=== PATIENT | male | born 1950 ===

== ENCOUNTER 2021-03-21 12:13 | Outpatient (REF) | payer MEDICARE, SELFPAY ==
[2021-03-21 14:39] LABS: PSA,Total (Free>4and<10) 4.58 ng/mL (0.00-4.00)
[2021-03-22 10:46] LABS: Free Prostate Spec Ag 1.1 ng/mL; Percent Free Prostate Spec Ag 26 % (calc) (>25); Prostate Specific Ag Total 4.3 ng/mL (< OR = 4.0)
== END 2021-03-21 12:14 | disposition home or self-care (01) ==
LOC: HO.LAB 12:13
PROVIDERS: PCP Internal Medicine; Visit Provider Urology
DX: Z12.5 Encounter for screening for malignant neoplasm of prostate (principal); N40.1 Benign prostatic hyperplasia with lower urinary tract symptoms; Z87.898 Personal history of other specified conditions
CPT/HCPCS: 36415; 84153; 84154

== ENCOUNTER 2021-04-26 06:08 | Outpatient (REF) | payer MEDICARE, SELFPAY ==
[2021-04-28 11:42] LABS: Free Prostate Spec Ag 0.8 ng/mL; Percent Free Prostate Spec Ag 28 % (calc) (>25); Prostate Specific Ag Total 2.9 ng/mL (< OR = 4.0)
== END 2021-04-26 06:09 | disposition home or self-care (01) ==
LOC: HO.LAB 06:08
PROVIDERS: PCP Internal Medicine; Visit Provider Urology
DX: Z12.5 Encounter for screening for malignant neoplasm of prostate (principal); R97.20 Elevated prostate specific antigen [PSA]
CPT/HCPCS: 36415; 84154

== ENCOUNTER → 2021-05-04 08:31 | Outpatient (BNVA) | payer MEDICARE, SELFPAY | PROVIDERS: PCP Internal Medicine; Visit Provider Urology | DX: N40.1 Benign prostatic hyperplasia with lower urinary tract symptoms (principal); R35.0 Frequency of micturition; R35.1 Nocturia; R31.9 Hematuria, unspecified; R97.20 Elevated prostate specific antigen [PSA] | CPT/HCPCS: 51798; 99212 ==

== ENCOUNTER 2021-08-23 11:30 | Outpatient (REF) | payer MEDICARE, SELFPAY ==
[2021-08-23 13:26] LABS: PSA,Total (Free>4and<10) 2.45 ng/mL (0.00-4.00)
== END 2021-08-23 11:31 | disposition home or self-care (01) ==
LOC: HO.LAB 11:30
PROVIDERS: PCP Internal Medicine; Visit Provider Urology
DX: Z12.5 Encounter for screening for malignant neoplasm of prostate (principal); N13.8 Other obstructive and reflux uropathy; N40.1 Benign prostatic hyperplasia with lower urinary tract symptoms; R35.1 Nocturia
CPT/HCPCS: 36415; 84153

== ENCOUNTER → 2021-09-07 10:57 | Outpatient (BNVA) | payer MEDICARE, SELFPAY | PROVIDERS: PCP Internal Medicine; Visit Provider Urology | DX: N40.1 Benign prostatic hyperplasia with lower urinary tract symptoms (principal); R35.1 Nocturia | CPT/HCPCS: 51798; 99212 ==

== ENCOUNTER 2021-10-24 07:07 | Day surgery (SDC) | payer MEDICARE, SELFPAY ==
[2021-10-17 15:31] VITALS: BMI 21.7
[2021-10-24] VITALS (7 sets, daily range): BP systolic 107–135; BP diastolic 65–87; PULSE 50–82; RESP 10–18; TEMP 36.1; O2SAT 96–100
[2021-10-24] MEDS: Lactated Ringers 1,000 ML 80 ML IVCONT (07:47)
--- NOTE | 2021-10-24 08:18 | HO.ANESPROP2 ---
HPI - Anesthesia Eval Consult details Narrative: 71 M for laser ablation PMFSH Active Problems Active Problems: All Active Problems (Updated 05/04/21 @ 09:25 by Edgardo Suh MD) Elevated PSA (Acute) Nocturia associated with benign prostatic hyperplasia (Acute) Benign prostatic hyperplasia with nocturia (Acute) Past Medical History Medical History Benign prostatic hyperplasia with nocturia Nocturia associated with benign prostatic hyperplasia Family History Family history of problems with anesthesia: No Surgical History Surgical History (Updated 10/17/21 @ 15:28 by Salena Eric RN) H/O colonoscopy Hx of cystoscopy Hx of transurethral resection of prostate History of Problems with Anesthesia: No Social History Social History (Updated 09/07/21 @ 11:06 by Ning Belcher CMA) Alcohol intake: current Alcohol intake frequency: 0-2 drinks per day Patient Tobacco Use Status: Never used Tobacco Advance Directives: No Advance Directives Information Provided: Yes Advance Directives on File: No Meds Allergies Allergy/AdvReac Type Severity Reaction Status Date / Time No Known Allergies Allergy Verified 09/07/21 11:03 [No Known Allergies*] Active Medications: Current Medications Lactated Ringer's (Lr) 1,000 mls @ 80 mls/hr IVCONT .[id number] BANDAR Last Admin: 10/24/21 07:47 Dose: 80 mls/hr Documented by: Home Medications Medication Instructions Recorded Confirmed Last Taken Type aspirin 81 mg tablet,delayed 81 mg PO DAILY 09/07/21 10/20/21 History release cholecalciferol (vitamin D3) 25 25 mcg PO DAILY 09/07/21 Unknown History mcg (1,000 unit) capsule multivitamin 1 tab PO DAILY 09/07/21 Unknown History Exam Exam Date and Time: October 24, 2021 0818 Height,Weight and Vital Signs: Height 5 ft 11 in Weight 70.76 kg Last Vital Signs Temp 97 F 10/24/21 07:10 Pulse 82 10/24/21 07:10 Resp 18 10/24/21 07:10 BP 135/78 10/24/21 07:10 Pulse Ox 96 10/24/21 07:10 Airway Mallampati Class: II TM Dist: >3cm Neck ROM: Full Loose/Missing/Broken Teeth: Yes (Cap , fillings ) Heart: rrr Lungs: bl breath sounds Assessment and Plan Final Anesthetic Review Family History of Problems with Anesthesia: No History of Problems with Anesthesia: No NPO: Yes ASA Class: II Final Preanesthetic Review: Lew Risks/Benef Reviewed Patient Risk: Intermediate Procedure Risk: Intermediate Anesthetic Plan Anesthetic Plan: GA Disposition: Standard PACU
--- NOTE | 2021-10-24 09:06 | MHC.SHP ---
Pre-Procedural Eval Section A Date of Service: 10/24/21 The patient is an INPATIENT: No Changes since office visit: No Cold of Flu in the past 2 weeks, No New Medical Problems, No Changes in Medication and No Patient answered all questions The History & Physical has been completed within 30 days and I have reviewed it.: Yes Section B Chief Complaint: Benign Prostatic Hyperplasia Allergies: Allergies Allergy/AdvReac Type Severity Reaction Status Date / Time No Known Allergies Allergy Verified 09/07/21 11:03 [No Known Allergies*] Plan Diagnosis/Plan: Unchanged (Laser enucleation of the prostate) I have reviewed the history and physical and performed a pertinent physical examination on my patient. No changes have occurred unless specified.
--- NOTE | 2021-10-24 10:06 | P.OP_ITS ---
Operative Note Operative Note Date of Service: 10/24/21 Narrative: PreOperative Diagnosis: Bladder outlet obstruction Post Operative Diagnosis: Bladder outlet obstruction Procedure: [facility] laser enucleation of the prostate Surgeon: Dr Edgardo Suh Anesthesia: General Indications for procedure: History of bladder outlet obstruction. Treated with alpha-lena and other medications. Prior TURP. Recurrence of symptoms after 10 years. Recommendation for repeat intervention. Prior procedure was office based. He is aware the risks and benefits. Procedure: After informed consent was verified the patient was brought to the operating room and placed in a supine position. Anesthesia was administered per protocol. Patient was placed in modified dorsal lithotomy position and prepped and draped in a sterile fashion. Safety pause time-out was confirmed. Antibiotics have been given. Twenty-four [place] laser cystoscope was inserted per urethra. No abnormalities found the anterior posterior urethra. The bladder was filled on both ureteric orifices were seen in normal position away from our area of interest. Regrowth was predominant on the left lateral side. There was only mild regrowth on the right side. No recurrence of median lobe. The left side was ablated starting with settings of 80 up to 140. Was taken from the junction with the area of the median lobe up the sidewall to the space of non recurrence approximately 2 o'clock position. The right lateral load recurrence was also similarly ablated. A similar procedure was repeated on the patient's right-hand side. When this was completed debris and pieces of prostate removed from the bladder. Both ureteric orifices were reviewed again in shown to be patent in away from any areas of energy damage. The apical area was reviewed in any stray ooze was controlled. A 22 [place] 30 cc balloon Pena catheter was placed over stylet into the bladder. Clear efflux was obtained. 30 cc was placed in the balloon and gentle traction was placed. A snap was used to hold tension once the patient will be moved and transported. Once transportation its finish this novel be removed. A belladonna and opiate suppository was placed for postprocedure pain management. He tolerated procedure well was extubated in the operating and transferred in a stable condition to the recovery area. Total energy 136,000 joules, total time 19 minutes 34 seconds Pathology: Prostate tissue Drains: Pena catheter
[2021-10-24] MEDS: Phenazopyridine HCL 100 MG TABLET PO (10:34)
[2021-10-24] MEDS: Acetaminophen 325 MG TABLET 650 MG PO (10:35)
== END 2021-10-24 11:15 | disposition home or self-care (01) ==
PROVIDERS: PCP Internal Medicine; Visit Provider Urology
PROC: (CPT 52648; principal; 2021-10-24 09:00)
DX: N40.1 Benign prostatic hyperplasia with lower urinary tract symptoms (principal); R35.1 Nocturia; N32.0 Bladder-neck obstruction; R31.29 Other microscopic hematuria
CPT/HCPCS: 52649; 88305; J1100; J1956; J2250; J2405; J3010

== ENCOUNTER → 2021-10-27 09:27 | Outpatient (BNVA) | payer MEDICARE, SELFPAY | PROVIDERS: PCP Internal Medicine; Visit Provider Urology | DX: N40.1 Benign prostatic hyperplasia with lower urinary tract symptoms (principal); R35.1 Nocturia; R97.20 Elevated prostate specific antigen [PSA] | CPT/HCPCS: 51700; 51798 ==

== ENCOUNTER 2021-12-09 08:49 | Outpatient (REF) | payer MEDICARE, SELFPAY | END 2021-12-09 08:50 | disposition home or self-care (01) | LOC: HO.LAB 08:49 | PROVIDERS: PCP Internal Medicine | DX: N40.1 Benign prostatic hyperplasia with lower urinary tract symptoms (principal); N13.8 Other obstructive and reflux uropathy; R35.1 Nocturia; R97.20 Elevated prostate specific antigen [PSA]; Z90.79 Acquired absence of other genital organ(s); Z98.890 Other specified postprocedural states; Z12.5 Encounter for screening for malignant neoplasm of prostate | CPT/HCPCS: 51798; 87086; 99212 ==

== ENCOUNTER → 2022-03-17 09:10 | Outpatient (BNVA) | payer MEDICARE, SELFPAY | PROVIDERS: PCP Internal Medicine; Visit Provider Urology | DX: N40.1 Benign prostatic hyperplasia with lower urinary tract symptoms (principal); R35.1 Nocturia; N52.9 Male erectile dysfunction, unspecified | CPT/HCPCS: 51798; 99212 ==

== ENCOUNTER 2022-09-18 11:09 | Outpatient (REF) | payer MEDICARE, SELFPAY ==
[2022-09-18 12:31] LABS: PSA,Total (Free>4and<10) 0.88 ng/mL (0.00-4.00)
== END 2022-09-18 11:10 | disposition home or self-care (01) ==
LOC: HO.LAB 11:09
PROVIDERS: PCP Internal Medicine; Visit Provider Urology
DX: Z12.5 Encounter for screening for malignant neoplasm of prostate (principal); N13.8 Other obstructive and reflux uropathy; N40.1 Benign prostatic hyperplasia with lower urinary tract symptoms; R35.1 Nocturia
CPT/HCPCS: 36415; 84153

== ENCOUNTER → 2022-09-29 08:26 | Outpatient (BNVA) | payer MEDICARE, SELFPAY | PROVIDERS: PCP Internal Medicine; Visit Provider Urology | DX: N52.9 Male erectile dysfunction, unspecified (principal); N40.1 Benign prostatic hyperplasia with lower urinary tract symptoms; R35.1 Nocturia | CPT/HCPCS: Q3014 ==

== ENCOUNTER 2023-03-20 07:49 | Outpatient (REF) | payer MEDICARE, SELFPAY ==
[2023-03-20 09:49] LABS: Prostate Specific Antigen 0.94 ng/mL (<0.05-4.0)
== END 2023-03-20 07:50 | disposition home or self-care (01) ==
LOC: HO.LAB 07:49
PROVIDERS: PCP Internal Medicine; Visit Provider Urology
DX: Z12.5 Encounter for screening for malignant neoplasm of prostate (principal); R97.20 Elevated prostate specific antigen [PSA]
CPT/HCPCS: 36415; 84153

== ENCOUNTER → 2023-04-03 12:55 | Outpatient (BNVA) | payer MEDICARE, SELFPAY | PROVIDERS: Visit Provider Urology | DX: N40.1 Benign prostatic hyperplasia with lower urinary tract symptoms (principal); R35.1 Nocturia; N52.9 Male erectile dysfunction, unspecified | CPT/HCPCS: 51798; 99212 ==

== ENCOUNTER 2023-10-19 08:16 | Outpatient (REF) | payer MEDICARE, SELFPAY ==
[2023-10-19 09:57] LABS: Prostate Specific Antigen 0.86 ng/mL (<0.05-4.0)
== END 2023-10-19 08:17 | disposition home or self-care (01) ==
LOC: HO.LAB 08:16
PROVIDERS: PCP Internal Medicine; Visit Provider Urology
DX: R97.20 Elevated prostate specific antigen [PSA] (principal); Z12.5 Encounter for screening for malignant neoplasm of prostate
CPT/HCPCS: 36415; 84153

== ENCOUNTER 2023-11-05 09:38 | Outpatient (AMB) | payer MEDICARE, SELFPAY ==
--- NOTE | 2023-11-05 09:38 | A.OFFVIS_ITS ---
Intake Intake Visit Reasons: 6m/PSA(psa?) Intake Note: Patient presents for tele visit follow up elevated psa (psa 0.86) Urology Medications: Finasteride, Cialis Blood Thinner: None Turf Keeper Required: No Allergies No Known Allergies [No Known Allergies*] Allergy (Verified 11/05/23 09:55) Medication List - Last Reconciled 11/05/23 by MATTHEW Bhagat aspirin 81 mg PO DAILY atorvastatin 20 mg PO DAILY cholecalciferol (vitamin D3) 25 mcg PO DAILY finasteride 5 mg PO DAILY 90 days multivitamin 1 tab PO DAILY tadalafil 10 mg PO ONCE PRN 30 days HPI HPI Comments History of Present Illness Details Elias is a pleasant 73 year old male patient of Dr. Stoll. He is being followed up on today via video telehealth for his lower urinary tract symptoms and erectile dysfunction. In discussion with the patient today reports to be doing and feeling well. He reports compliance with finasteride every other day. He reports noting significant improvement in erectile dysfunction while taking finasteride every other day verses daily. Recent PSA results reviewed with the patient today as noted and trended below. He currently denies any bothersome urinary issues or concerns. He denies urinary urgency, urinary frequency, incontinence, nocturia, hematuria, dysuria, foul smelling urine, changes to urinary stream, flank pain, fever, and or chills. He is happy with his current voiding parameters. Lower Urinary Tract Symptoms Progressive weakness of stream PSA - 03/27 3.1, 03/28 4.6, 08/28 2.5, 09/28 0.9, 03/30 0.9, 10/31 0.9 Prior variable PSA with prostate biopsy 2004 Current meds - QOD finasteride Prior investigations for microscopic hematuria found to have slight inflamed area on posterior bladder TANISHA large Prior therapy tamsulosin and finasteride Therapeutic plan - finasteride Erectile dysfunction Had visual side effects with Viagra PFSH Medical History Nocturia associated with benign prostatic hyperplasia Benign prostatic hyperplasia with nocturia Surgical History Hx of transurethral resection of prostate Hx of cystoscopy H/O colonoscopy Social History Alcohol intake: current Alcohol intake frequency: 0-2 drinks per day Patient Tobacco Use Status: Never used Tobacco Review of Systems Const All systems reviewed & are unremarkable except as noted in HPI and below Eyes Reports no additional complaints ENT Reports no additional complaints Card Reports no additional complaints Resp Reports no additional complaints GI Reports no additional complaints Reports as per HPI Musc Reports no additional complaints Neuro Reports no additional complaints Psych Reports no additional complaints Endo Reports no additional complaints Cash/Lymph Reports no additional complaints Aller/Immun Reports no additional complaints Physical Exam Const General: cooperative, healthy appearing, comfortable, no acute distress, well developed, alert and awake Orientation/consciousness: patient oriented x3 Resp Effort & Inspection: normal respiratory effort and able to speak in complete sentences Neuro General: patient oriented x3 Psych Appearance: grossly normal Speech and movement: Clear speech present Affect: normal affect Attitude: cooperative Thought process: Normal thought process present Thought content: Normal thought content present Insight: Fair insight present (Psych) Judgement: Fair judgement present (Psych) Assessment & Plan Assessment & Plan (1) Elevated PSA: Code(s): R97.20 - Elevated prostate specific antigen [PSA] Plan Recent PSA results reviewed with the patient today; as noted above. Patient currently denies any bothersome urinary issues or concerns. Discussed at length discontinuation of finasteride versus continuing to take finasteride every other day Will continue with finasteride every other day and tadalafil as needed Patient reporting improvement in ED since taking finasteride every other day Discussed at length lifestyle modifications to assist with erectile dysfunction as well as overall health and well-being. Patient reports to be happy with current voiding parameters Will obtain PSA in 6 months. Follow-up in 6 months with lab to be completed prior; or sooner with any issues, concerns, and or questions. Orders: Orders Prostate Specific Antigen 6 Months R97.20 - Elevated prostate specific antigen [PSA] Patient Instructions: The patient had an opportunity to ask questions regarding the treatment plan. All questions were answered. Physical exam, labs, and imaging were discussed and reviewed in detail. As well as risks, benefits, and discussion of treatment choices. No major barriers to understanding were identified. The patient expressed understanding and agreement with the above treatment plan. The patient was made aware they should contact our office by phone for worsening of their current condition, the appearance of new symptoms, or with any questions or concerns. Compliance is encouraged with any medications and follow up testing that is ordered. It is a privilege to be allowed the opportunity to participate in? your urological care.? Again, if you have any questions or concerns If you have any questions or concerns please do not hesitate to contact me. The office is [phone]. This note is constructed using voice recognition software. While every effort has been made to ensure accuracy loan processor errors may have been included. Yours sincerely, EVAN BhagatEN[facility] Telehealth Telehealth Location of provider rendering services: practice address Location of patient: address on file Patient Identification confirmed using: Name, : Yes Telehealth method: video Patient verbally consented to treatment: Yes Patient verbally consented to billing insurance company: Yes Patient informed of any privacy concerns related to visit: Yes Minutes spent on Phone/Video with Pt.: 15 Coding Level of Care Code Tele Est Pt Level 3 (31295) Diagnoses Elevated PSA R97.20
== END 2023-11-05 10:26 | disposition home or self-care (01) ==
LOC: HO.HUSH 09:38
PROVIDERS: PCP Internal Medicine; Visit Provider Nurse Practitioner Family
DX: R97.20 Elevated prostate specific antigen [PSA] (principal)
CPT/HCPCS: 99213

== ENCOUNTER → 2023-11-05 09:38 | Outpatient (BNVA) | payer MEDICARE, SELFPAY | PROVIDERS: PCP Internal Medicine; Visit Provider Nurse Practitioner Family ==

== ENCOUNTER 2024-04-21 06:33 | Outpatient (REF) | payer MEDICARE, SELFPAY ==
[2024-04-21 11:13] LABS: Prostate Specific Antigen 0.73 ng/mL (<0.05-4.0)
== END 2024-04-21 06:34 | disposition home or self-care (01) ==
LOC: HO.LAB 06:33
PROVIDERS: PCP Internal Medicine; Visit Provider Nurse Practitioner Family
DX: R97.20 Elevated prostate specific antigen [PSA] (principal); Z12.5 Encounter for screening for malignant neoplasm of prostate
CPT/HCPCS: 36415; 84153

== ENCOUNTER 2024-05-07 08:23 | Outpatient (AMB) | payer MEDICARE, SELFPAY ==
--- NOTE | 2024-05-07 08:30 | A.OFFVIS_ITS ---
Intake Visit Reasons: 6M F/U/PSA(set) Intake Note: Patient presents for 6m follow up elevated psa (psa 0.73) Urology Medications: Finasteride,tadalafil Blood Thinner:aspirin Cloth Winder Machine Operator Required: No Allergies No Known Allergies [No Known Allergies*] Allergy (Verified 05/07/24 10:45) Medication List - Last Reconciled 05/07/24 by KEHINDE BhagatP- aspirin 81 mg PO DAILY atorvastatin 20 mg PO DAILY cholecalciferol (vitamin D3) 25 mcg PO DAILY finasteride 5 mg PO DAILY 90 days multivitamin 1 tab PO DAILY tadalafil 10 mg PO ONCE PRN 30 days HPI Comments Details: Elias is a pleasant 73 year old male patient of Dr. Stoll. He has a past medical history of hyperlipidemia. He presents to the office today for follow-up of his lower urinary tract symptoms and erectile dysfunction. In discussion with the patient today reports to be doing and feeling well. He reports compliance with finasteride 3 times per week. He also discusses not having to utilize as needed Cialis prior to sexual activity as he feels he has been able to maintain his erections that are adequate for penetration without Cialis. He currently denies any bothersome urinary issues or concerns however, he does report urinary leakage and urinary dribbling at times however describes these episodes as infrequent and not bothersome. Discussed at length potential causes of these urinary issues. Information provided regarding pelvic floor exercises and further treatment options. Recent PSA results reviewed with the patient today as noted and trended below. In office urinalysis results reviewed with the patient today. He denies urinary urgency, urinary frequency, incontinence, nocturia, hematuria, dysuria, foul smelling urine, changes to urinary stream, flank pain, fever, and or chills. He is happy with his current voiding parameters. Lower Urinary Tract Symptoms Progressive weakness of stream PSA - 03/27 3.1, 03/28 4.6, 08/28 2.5, 09/28 0.9, 03/30 0.9, 10/31 0.9, 04/30 0.7 Prior variable PSA with prostate biopsy 2004 Current meds - QOD finasteride Prior investigations for microscopic hematuria found to have slight inflamed area on posterior bladder TANISHA large Prior therapy tamsulosin and finasteride Therapeutic plan - finasteride Erectile dysfunction Had visual side effects with Viagra [facility] Medical History (Reviewed 05/07/24 @ 10:48 by KEHINDE BhagatFORM[facility]LY [facility]) Nocturia associated with benign prostatic hyperplasia Benign prostatic hyperplasia with nocturia Surgical History Hx of transurethral resection of prostate Hx of cystoscopy H/O colonoscopy Social History Alcohol intake: current Alcohol intake frequency: 0-2 drinks per day Patient Tobacco Use Status: Never used Tobacco Review of Systems Const All systems reviewed & are unremarkable except as noted in HPI and below Eyes Reports no additional complaints ENT Reports no additional complaints Card Reports no additional complaints Resp Reports no additional complaints GI Reports no additional complaints Reports as per HPI Musc Reports no additional complaints Neuro Reports no additional complaints Psych Reports no additional complaints Endo Reports no additional complaints Cash/Lymph Reports no additional complaints Aller/Immun Reports no additional complaints Physical Exam Const General: cooperative, healthy appearing, comfortable, no acute distress, well developed, alert and awake Orientation/consciousness: patient oriented x3 Limitations: no limitations HEENT Head: Yes normal to inspection, Yes normocephalic and Yes atraumatic Ears: hearing grossly normal bilaterally Eyes General: appearance normal, both eyes and all related structures Neck Neck: Yes normal visual inspection and Yes trachea midline Chest Chest palpation & inspection: normal inspection of the chest Resp Effort & Inspection: normal respiratory effort and able to speak in complete sentences Cardio Rate: regular rate GI Inspection: Yes normal to inspection General: Yes no CVA tenderness Back/Spine/Pelvis Back: no CVA tenderness Skin General skin exam: no rashes or lesions noted Neuro General: patient oriented x3 Extrem General: Yes normal to inspection Psych Appearance: grossly normal and well kempt Mental Status: mental status grossly normal Speech and movement: Normal speech and movement present and Clear speech present Affect: normal affect Attitude: cooperative Thought process: Normal thought process present Thought content: Normal thought content present Insight: Fair insight present (Psych) Judgement: Fair judgement present (Psych) Results AMB Urinalysis, Automated UA Leukoctes 0 Sidney/uL Last Edit by ALIDA Anderson on 05/07/24 08:47 UA Nitrite Negative Last Edit by ALIDA Anderson on 05/07/24 08:47 UA Urobilinogen 0.2 mg/dL Last Edit by ALIDA Anderson on 05/07/24 08:4 7 UA Protein 0 mg/dL Last Edit by ALIDA Anderson on 05/07/24 08:47 UA pH 5.5 Last Edit by ALIDA Anderson on 05/07/24 08:47 UA Blood 0 Yasmani/uL Last Edit by ALIDA Anderson on 05/07/24 08:47 UA Specific Langston 1.010 Last Edit by ALIDA Adnerson on 05/07/24 08: 47 UA Ketone Negative Last Edit by ALIDA Anderson on 05/07/24 08:47 UA Bilirubin 0 mg/dL Last Edit by ALIDA Anderson on 05/07/24 08:47 UA Glucose 0 mg/dL Last Edit by ALIDA Anderson on 05/07/24 08:47 Results Reviewed Results Reviewed: Laboratory Last Values Urine pH (Auto) 5.5 05/07/24 08:47 Specific Langston (Auto) 1.010 05/07/24 08:47 Urine Protein (Auto) 0 mg/dL 05/07/24 08:47 Glucose (UA)(Auto) 0 mg/dL 05/07/24 08:47 Urine Ketones (Auto) Negative 05/07/24 08:47 Urine Blood (Auto) 0 Yasmani/uL 05/07/24 08:47 Urine Nitrite (Auto) Negative 05/07/24 08:47 Urine Bilirubin (Auto) 0 mg/dL 05/07/24 08:47 Urine Urobilinogen (Auto) 0.2 mg/dL 05/07/24 08:47 Leukocyte Esterase (Auto) 0 Sidney/uL 05/07/24 08:47 Assessment & Plan Assessment & Plan (1) Elevated PSA: Code(s): R97.20 - Elevated prostate specific antigen [PSA] Category: Medical Plan In office urinalysis results reviewed with the patient today; as noted above. Recent PSA results reviewed with the patient today; as noted above. Patient currently denies any bothersome urinary issues or concerns. Discussed at length discontinuation of finasteride versus continuing to take finasteride every other day Will continue with finasteride every other day and tadalafil as needed if needed. Patient reporting improvement in ED since taking finasteride every other day. Discussed at length lifestyle modifications to assist with erectile dysfunction as well as overall health and well-being. Patient reports to be happy with current voiding parameters Will obtain PSA in 1 year Follow-up in 1 year with lab to be completed prior; or sooner with any issues, concerns, and or questions. Orders: Orders AMB Urinalysis Automated Today Z13.9 - Encounter for screening, unspecified Prostate Specific Antigen 1 Year N40.1 - Benign prostatic hyperplasia with lower urinary tract symptoms, R35.1 - Nocturia Patient Instructions: The patient had an opportunity to ask questions regarding the treatment plan. All questions were answered. Physical exam, labs, and imaging were discussed and reviewed in detail. As well as risks, benefits, and discussion of treatment choices. No major barriers to understanding were identified. The patient expressed understanding and agreement with the above treatment plan. The patient was made aware they should contact our office by phone for worsening of their current condition, the appearance of new symptoms, or with any questions or concerns. Compliance is encouraged with any medications and follow up testing that is ordered. It is a privilege to be allowed the opportunity to participate in? your urological care.? Again, if you have any questions or concerns If you have any questions or concerns please do not hesitate to contact me. The office is [phone]. This note is constructed using voice recognition software. While every effort has been made to ensure accuracy rolling mill operator errors may have been included. Yours sincerely, MATTHEW Bhagat Coding Level of Care Code Est Pt Level 3 (56918) Complex EM visit Add On G2211 Diagnoses Elevated PSA R97.20
== END 2024-05-07 09:08 | disposition home or self-care (01) ==
PROVIDERS: PCP Internal Medicine; Visit Provider Nurse Practitioner Family
DX: R97.20 Elevated prostate specific antigen [PSA] (principal); Z13.9 Encounter for screening, unspecified
CPT/HCPCS: 99213; G2211

== ENCOUNTER → 2024-05-07 08:23 | Outpatient (BNVA) | payer MEDICARE, SELFPAY | PROVIDERS: PCP Internal Medicine; Visit Provider Nurse Practitioner Family | DX: R97.20 Elevated prostate specific antigen [PSA] (principal); E78.5 Hyperlipidemia, unspecified | CPT/HCPCS: 81003; 99212 ==

== ENCOUNTER 2025-04-20 06:41 | Outpatient (REF) | payer MEDICARE, SELFPAY ==
--- OUTSIDE RECORDS SUMMARY | 2024-07-23 05:00 | XMS_ITS | Encounter Summary ---
Author Name [facility] Address [address] [place] [address] Care Team Providers Care Estate Attorney Name Role Phone ELKE MAYES Primary Care Provider Unavailjessica wong Insurance Providers: All historical and current Section Date Range: From patient's date of to the date document was created. This section includes the names of all active insurance providers for the patient. Insurance Provider Type of Coverage Plan Name Start of Policy Coverage End of Policy Coverage Group Number Member ID Insurance Provider's Telephone Number Policy Kraft's Name Patient's Relationship to Policy Kraft [place]) MEDICARE SUPPLEMEN [place] PSUED O MEDEX BRONZ E Jun 08, 2016 [id number] AMY BAUM PATIENT [place]PP[place] MEDEX [place] E Jun 08, 2016 [id number] [phone] PABLO BAUM JR PATIENT [place] MED[employer] [place] E Jun 08, 2016 [id number] PABLO BAUM JR PATIENT MEDICARE (WNR) MEDICARE (M) PART A Jun 08, 2016 PART A [id number] AMY BAUM PATIENT MEDICARE (WNR) MEDICARE (M) PART B Jun 08, 2016 PART B [id number] AMY BAUM HN PATIENT MEDICARE (WNR) MEDICARE (M) PART A Jun 08, 2016 PART A [id number] AMY BAUM HN PATIENT MEDICARE (WNR) MEDICARE (M) PART B Jun 08, 2016 PART B [id number] AMY BAUM HN PATIENT MEDICARE (WNR) MEDICARE (M) PART A Jun 08, 2016 PART A [id number] AMY BAUM HN PATIENT MEDICARE (WNR) MEDICARE (M) PART B Jun 08, 2016 PART B [id number] AMY BAUM PATIENT Selected Encounter This section includes the information on record at [place] for the Encounter. Date/Time Encounter Type Encounter Description Reason Provider Source Jul 23, 2024 09:00 AM SPECIAL SUPPLIES PHYS/QHP SLEEP MEDICINE ICD-10-CM G47.[address], [address] NATALIE RODRIGUEZ [place] Encounter Template Text not used by [place] Assessments - Encounter Diagnoses This section includes the primary and secondary diagnoses documented for the Encounter. Date/Time Primary/Secondary Diagnosis Diagnosis Name Provider Source Jul 23, 2024 09:54 AM PRIMARY Sleep apnea, unspecified NATALIE TODD HALI Plan of Treatment: Future Appointments (+ 6 months) and Future Tests (+/- 45 days) The Plan of Treatment section includes future care activities for the patient from all [place] treatmentfacilities. This section includes future appointments and future orders which are active, pending or scheduled. Future Appointments This section includes appointments that were scheduled to occur 6 months from the date of the Encounter, up to a maximum of 20 appointments. The data comes from all [place] treatment facilities. Appointment Date/Time Appointment Type Appointme nt Facility Name Aug 26, 2024 09:30 AM [facility] Jan 20, 2025 09:30 [facility] Social History: Smoking Status (Most current) and Tobacco Use (All prior to encounter date) This section includes the most current, and the historical, smoking and tobacco- related health factors from the [facility] facility where the [facility] took place. Current Smoking Status This section includes the most current smoking, or tobacco-related health factor, from the [facility] facility where the Encounter took place. Date/Time Current Smoking Status Angel crow Sep 05, 2022 09:00 AM PA-TOBACCO NEVER USED [facility] Tobacco Use History This section includes a history of the smoking, or tobacco-related health factors, that were collected on or before the date of the Encounter. The data comes from the [place] facility where the Encounter took place. Date/Time Smoking Status/Tobacco Use Comment F acility Sep 06, 2021 09:00 AM VA-TOBACCO NEVER USED [facility] Aug 17, 2020 09:30 AM VA-TOBACCO NEVER USED [facility] Apr 04, 2018 11:09 AM VA-TOBACCO NEVER USED [facility] Apr 04, 2018 08:50 AM LIFETIME NON-TOBACCO USER [facility] Apr 25, 2016 04:46 PM LIFETIME NON-TOBACCO USER [facility] Apr 16, 2015 02:03 PM LIFETIME NON-TOBACCO USER [facility] Encounter Notes: All associated encounter notes This section contains the clinical notes associated to the Encounter. Date/Time Encounter Note(s) Provider Source Jul 23, 2024 09:47 AM RESPIRATORY THERAP Y NOTE: LOCAL TITLE: RESPIRATORY THERAPY NOTE(BLANK) STANDARD TITLE: RESPIRATORY THERAPY NOTE DATE OF NOTE: JUL 23, 2024@09:47 ENTRY DATE: JUL 23, 2024@09:47:22 AUTHOR: NATALIE TODD COSIGNER: URGENCY: STATUS: COMPLETED [place] diagnosed with sleep apnea had telephone follow up visit after 04/23/2024 for APAP [id number]. Cielo is doing well with use and is 87% compliant. Full Airview report follows this note. He reports cleaning as recommended. He was not able to get a seal with F30-i and self-purchased a F&P Vitera using large cushion. His issue is his jaw slackens at night and he has excess oral secretions. Chinstrap and additional supplies ordered via [facility]. [facility] ordering instructions given. was reminded that consistent use > 4 hours a night yield the best benefit. was also cautioned regarding the dangers of untreated apnea. He was reminded of the replacement schedule for supplies. He will be followed using AirView and in clinic as needed. [place] was encouraged to call or email with any issues or concerns. [facility]View Compliance Report Usage 06/23/2024 - 07/22/2024 Usage days 26/30 days (87%) >= 4 hours 26 days (87%) < 4 hours 0 days (0%) Usage hours 175 hours 41 minutes Average usage (total days) 5 hours 51 minutes Average usage (days used) 6 hours 45 minutes Median usage (days used) 6 hours 46 minutes Total used hours (value since last reset - 07/22/2024) 574 hours AirSense 11 AutoSet Serial number [id number] Mode AutoSet Min Pressure 5 cmH2O Max Pressure 20 cmH2O EPR Fulltime EPR level 3 Response Soft Therapy Pressure - cmH2O Median: 7.0 95th percentile: 13.4 Maximum: 15.2 Leaks - L/min Median: 2.1 95th percentile: 26.3 Maximum: 39.3 Events per hour AI: 4.1 HI: 1.1 AHI: 5.2 Apnea Index Central: 1.7 Obstructive: 1.6 Unknown: 0.6 RERA Index 0.9 Rajeev-Gavin respiration (average duration per night) 6 minutes (1%) /joceline/ NATALIE TODD RESPIRATORY THERAPIST Signed: 07/23/2024 09:55 NATALIE TODD [facility]
--- OUTSIDE RECORDS SUMMARY | 2025-04-20 06:46 | XMS_ITS | Patient Health Record ---
Author Organization [facility] Address [address] [place] [address] Care Team Providers Care Human Resources Communications Manager Name Role Phone Oziel Stoll MD Primary Care Provider Unavaila Niall Morris Unavailable [phone] Reason For Referral No Information Medications Medication SIG (Take, Route, Frequency, Duration) Notes Start Date End Date Status Aspir-81 81 MG 1 tablet Orally Once a day Active Tamsulosin HCl 0.4 MG TAKE 1 CAPSULE BY MOUTH EVERY DAY Oral for 90 Active Multivitamin Adults 50+ - as directed Or ally once a day Active Vitamin D3 250 MCG (91636 UT) 1 tablet Orally as directed Active Glucosamine 1500 1 capsule with a enma l Orally as directed Active Atorvastatin Calcium 20 MG 1 tablet Oral ly Once a day for 30 day(s) Active Slow Fe 142 (45 Fe) MG 1 tablet Orally a s directed Active Immunizations Vaccine Route Administration Date Status Comme nts Influenza Unknown 06/08/2018 Administered Problems Problem Type SNOMED Code ICD Code Onset Dates Problem Status W/U Status Risk Notes Problem 575926143 Encounter for screening for malignant neoplasm of colon (Z12.11) Active confirmed Problem 503060282 History of adenomatous polyp of colon (Z86.010) Active confirmed Problem 20673777 Iron deficiency (E61.1) Active confirmed Problem 875159650 Irritable bowel syndrome with diarrhea (K58.0) Active confirmed Plan Of Treatment Future Test Test Name Order Date COLONOSCOPY 06/16/2014 COLONOSCOPY 11/18/2019 Insurance Providers Payer Name Payer Address Payer Phone Subscriber Number Group Number Insured Name Patient Relationship to Insured Coverage Start Date Coverage End Date MEDICARE OF [place] [address] [place] [id number] PABLO BAUM Self - patient is the insured MEDEX ATTN CLAIMS [address] [place] [phone] [id number] PABLO BAUM Self - patient is the insured Medical (General) History Medical History History ICD Code Small tubular adenoma remove d in 02/2009--Neg. colonoscopy in 1994 and negative colonoscopy in 08/2014 Denies IN,DM,CVA,Lung disease,renal dise ase Told of low Iron at the [facility] in early 2018 IBS Hyperlipidemia BPH Surgical History Surgery Date(Month/Year) Wrist surgery-left 1973 Enlarged prostate--laser surgery with Dr Jennifer Casanova, III Benign biopsy of bladder with cystoscopy Right knee
[2025-04-20 08:24] LABS: Prostate Specific Antigen 1.12 ng/mL (<0.05-4.0)
== END 2025-04-20 06:42 | disposition home or self-care (01) ==
LOC: HO.LAB 06:41
PROVIDERS: PCP Hospitalist; Visit Provider Nurse Practitioner Family
DX: N40.1 Benign prostatic hyperplasia with lower urinary tract symptoms (principal); R35.1 Nocturia
CPT/HCPCS: 36415; 84153

== ENCOUNTER 2025-05-06 07:21 | Outpatient (AMB) | payer MEDICARE, SELFPAY ==
--- OUTSIDE RECORDS SUMMARY | 2025-05-02 10:31 | XMS_ITS | Continuity of Care Document ---
Author Organization [facility] ter Address [address] [place] [address]- Care Team Providers Care Network Cabler Name Role Phone Vinny Fallon DO Lucas Primary Care Physician Encounter [facility] Date(s): 04/30/25 - 05/02/25 [facility] [address] [place] [id number] Discharge Disposition: A-D/C Home Attending Physician: Yassine DONNELLY, Claudio Dejesus Admitting Physician: Asif DONNELLY, Laith Referring Physician: Not on Staff, Referring MD Encounter Type: Disch IP Allergies, Adverse Reactions, Alerts No Known Allergies Medications aspirin 81 mg oral delayed release tablet 81 mg, 1, tablet, By Mouth, Daily, # 90 tablet, Refills 0, Tot. Refills 0, Maintenance, 05/02/25 9:05:00 AM EDT, Route to Pharmacy Electronically, [facility], Partial fill upon patient request if the prescription is for a schedule II opioid drug., 180, cm, 05/02/25 8:29:00 EDT, Height,73, kg, 04/30/25 14:30:00 EDT, Dry Weight Start Date: 05/02/25 Stop Date: 07/31/25 Status: Ordered Quantity: 90.0 Unit: tablet Repeat number: 1 atorvastatin 40 mg oral tablet 1 tablet = 40 mg, By Mouth, Daily at bedtime, # 90 tablet, 0 Refills, Maintenance, 05/02/25 9:04:00 AM EDT, Tablet, [facility], Partial fill upon patient request if the prescription is for a schedule II opioid drug., 180, cm, 05/02/25 8:29:00 EDT, Height, 73, kg, 04/30/25 14:30:00 EDT,Dry Weight Start Date: 05/02/25 Stop Date: 07/31/25 Status: Ordered Quantity: 90.0 Unit: tablet Repeat number: 1 Chondroitin-Glucosamine By Mouth, 0 Refills, Maintenance, 12/06/22 10:10:00 AM EST, Partial fill upon patient request if the prescription is for a schedule II opioid drug. Start Date: 12/06/22 Status: Ordered Repeat number: 1 finasteride 5 mg oral tablet 0 Refills, Maintenance, 12/06/22 10:09:00 AM EST, Partial fill upon patient request if the prescription is for a schedule II opioid drug. Start Date: 12/06/22 Status: Ordered Repeat number: 1 Multi-Day Plus Minerals By Mouth, Daily, 0 Refills, Maintenance, 12/06/22 10:10:00 AM EST, Partial fill upon patient request if the prescription is for a schedule II opioid drug. Start Date: 12/06/22 Status: Ordered Repeat number: 1 ticagrelor 90 mg oral tablet 1 tablet = 90 mg, By Mouth, 2 times a day, # 180 tablet, 0 Refills, Maintenance, 05/02/25 9:05:00 AMEDT, Tablet, [facility], Partial fill upon patient request if the prescription is fora schedule II opioid drug., 180, cm, 05/02/25 8:29:00 EDT, Height, 73, kg, 04/30/25 14:30:00 EDT, Dry Weight Start Date: 05/02/25 Stop Date: 07/31/25 Status: Ordered Quantity: 180.0 Unit: tablet Repeat number: 1 Vitamin D3 1000 intl units oral tablet 1 tablet = 25 mcg, By Mouth, Daily, 0 Refills, Maintenance, 12/06/22 10:10:00 AM EST, Partial fill upon patient request if the prescription is for a schedule II opioid drug. Start Date: 12/06/22 Status: Ordered Repeat number: 1 Problem List Condition Confirmation Course Effective Dates Status H ealth Status Informant Atherosclerosis of right carotid artery Confirmed Active Benign prostatic hyperplasia Confirmed Active Nocturnal leg cramps Confirmed Active Herpes zoster Confirmed Active Hyperlipidemia Confirmed Active Procedures Procedure Date Related Diagnosis Body Site Status Arthroscopy of R knee Com pleted TURP - Transurethral resection of prostate Completed Results Radiology Reports * Exam Date Time Procedure Performing Provider Status 04/30/25 9:41 AM Chest 2 Views Frontal and Lat Auth (Verified) Notes: (Chest 2 Views Frontal and Lat) Reason For Exam: Chest Pain;Other: RESULT: Chest 2 Views Frontal and Lat Chest 2 Views Frontal and Lat Hx of Present Illness: Pt c o burning in my lungs while workiing out this am; Reason: Other:; Chest Pain; Clinical Question(s): Other: COMPARISON: 09/11/2014 FINDINGS: LINES AND TUBES: None. LUNGS AND PLEURA: Clear lungs. Normal pulmonary vascularity. No evidence of pleural effusion. No pneumothorax. HEART, MEDIASTINUM AND ANDREW: Heart is normal in size. Normal mediastinal and hilar contour. BONES AND SOFT TISSUES: No acute abnormality. IMPRESSION: No acute abnormality. WSN: [id number] Ordering Physician: Traci Avila Dictated By: Brown Murphy MD Dictated Date/Time: 04/30/25 9:42 am Reviewed By: Brown Murphy MD Signed By: Brown Murphy MD Signed Date/Time: 04/30/25 9:42 am Transcribed By: STARLA Transcribed Date/Time: 04/30/25 9:42 am Social History Social History Type Response Smoking Status Never (less than 100 in lifetime) entered on: 12/06/22 Sex Sex Representation Male (finding) Note * Event Display: Hemodynamic Procedure Report Authored Date: [id number] * Paige Laguna: PERFORM, SIGN, VERIFY Event Display: Cardiac Rehab Note Authored Date: [id number] Patient: PABLO BAUM Age: 74 years Sex: Male : 1950 Associated Diagnoses: None Author: Paige Laguna Diagnosis Cardiac Rehab Diagnosis: NSTEMI/PCI/LAD. Pre-exercise Vitals Vital Signs: 62 HR. Vital Signs Comment: Reviewed in [facility]. Pre-exercise Physical Examination Neurologic: alert & oriented. Activity Symptoms with Cardiac Rehab Symptoms: No exertional symptoms. Activity Activity tolerance: Change in activity tolerance increased. Transfers: independent. Ambulate: independent. Stairs: independent. Assistive Devices Assistive Device: None. Patient Education Education: Family present, Post procedure guidelines, Stent card reviewed, educated patient on the importance of Cardiac Rehab/patient is looking forward to attending. He has a regualr routine at [facility] 4x/wk spinning/weight training. Plans to do 12 sessions with us.. Education topic Teachback comprehension 100% Topic: Medication education, Role of exercise, Home activity guidelines/limits. Reinforcement needed: Medication education. Recommendation and Plan Ambulate: 5 times/day. Outpatient follow up recommended: [facility], in 2 weeks, will call patient on SundayMay 04 to schedule Cardiac Rehab appoitment. all education completed with patient and at bedside. . Cardiac Rehab: Will sign off at this time, Please contact us if we can provide further assistance with this patient, [phone]. Recommendation comment: RN notified of plan. * Ronni NGO, Denae Greenberg: PERFORM Event Display: Discharge/Transfer Note Hospital Authored Date: [id number] Nursing Discharge Note Entered On: 05/02/2025 10:32 EDT Performed On: 05/02/2025 10:31 EDT by Ronni NGO, Denae Greenberg Nursing Discharge Note 2 Discharge Time : 05/02/2025 10:31 EDT Discharge Level of Care at Discharge : Home/Assisted/Foster Care Patient Left Unit Via : Ambulatory Patient Accompanied Off Unit with : Responsible adult DC Instructions Provided & Signed by Pt : Yes Patient Understands D/C Instructions : Yes Patient Instructions Discharge Signed : Yes Discharge Comments : IV and monitor removed. IV site and r radial site stable. Pt awake and alert ox3. Pt d/c home with instructions explained to pt and . Scripts available at our pharmacy. Did Pt have Specialty Bed or Wound Vac : No Ronni NGO, Denae Greenberg - 05/02/2025 10:31 EDT * Yassine DONNELLY, Claudio Dejesus: PERFORM Event Display: Discharge/Transfer Note Hospital Authored Date: [id number] Patient: ??PABLO BAUM ? Age:??74 Years?Sex:??Male?:??1950?? Patient Information Discharge Location: M5 Primary Care Physician: Vinny Fallon DO Admit Date/Time: 04/30/2025 11:58 Discharge Disposition Discharge Disposition: Home: with family Discharge Diagnosis Atherosclerosis of right carotid artery (I65.21) Hyperlipidemia (E78.5) Benign prostatic hyperplasia (N40.0) NSTEMI (non-ST elevated myocardial infarction) (I21.4) _ Discharge Medications Aspirin (aspirin 81 mg oral delayed release tablet)??81 Milligram 1 tablet By Mouth Daily for 90 Days Atorvastatin (atorvastatin 40 mg oral tablet)??1 tab(s) 40 Milligram By Mouth Daily at bedtime for 90 Days Cholecalciferol (Vitamin D3 1000 intl units oral tablet)??1 tab(s) 25 Microgram By Mouth Daily Chondroitin-Glucosamine??By Mouth Multivitamin With Minerals (Multi-Day Plus Minerals)??By Mouth Daily Ticagrelor (ticagrelor 90 mg oral tablet)??1 tab(s) 90 Milligram By Mouth 2 times a day for 90 Days ? Quality Measures Chest Pain, AMI Quality Measures:?Aspirin Prescribed at Discharge:??Aspirin Prescribed ?Statin Prescribed at Discharge:??Statin Prescribed ? Medications Started Ticagrelor (ticagrelor 90 mg oral tablet)??1 tab(s) 90 Milligram By Mouth 2 times a day for 90 Days Doses Changed Atorvastatin (atorvastatin 40 mg oral tablet)??1 tab(s) 40 Milligram By Mouth Daily at bedtime for 90 Days Allergies Allergies ?(Active and Proposed Allergies Only) NKA? (Severity: Unknown severity, Onset: Unknown) ? PCP Follow-Up/Heads-Up - Repeat blood work - Follow-up on discharge. - Please review list of medications. s/p [facility] Mid LAD 99%stenosis s/p pci with REJI 05/01, started on plavix ??90mg BID for 1 year post-PCI (through 05/01/26). Future Appointments Sunday 11:30 AM EDT ?? Where: [facility] [address] [place] [address]- Status: Pending 2024 10:00 AM EDT ?? With: Lisa DONNELLY, René Stoll Where: [facility] [address] [place] [address]- Status: Pending Hospital Course ?74-year-old male with past medical history of bilateral carotid stenosis 50% narrowing, BPH, herpes zoster, HLD, nocturnal leg cramps, PVD who presents to the emergency department with chest painthat occurred during workout. Presentation and increased troponin c/w NSTEMI. Consulted cards. On Heparin GGT. s/p [facility] Mid LAD 99%stenosis s/p pci with REJI 05/01. No symptoms at this time. Cleared fordc by cardiology. Objective Assessment and Plan ?? NSTEMI (non-ST elevated myocardial infarction) (I21.4) ?Associated with??Hyperlipidemia (E78.5) ? Non-ST elevation myocardial infarction Presented with CP EKG did not reveal ST elevations, NSR. Troponin peaked at 464?? Loaded with??Aspirin??and started on heparin drip in the ED. Current symptoms and exam: Asymptomatic ECHO with EF 57 %. There is moderate hypokinesis of the mid to apical??anteroseptal wall and mild hypokinesis of the LV apex. Grade I, mild diastolic dysfunction with impaired LV relaxation. s/p [facility] Mid LAD 99%stenosis s/p pci with REJI 05/01? Plan: ?Continue aspirin 81mg daily ??? Loaded with 180mg Ticagrelor yest and now on??90mg BID for 1 year post-PCI (through 05/01/26) ??? Continue atorvastatin?? 40 mg ??? Not on metoprolol?? due to bradycardia, discussed with cardiology and agree with holding off for now ?Cardiology??arranging for f/u ?? Atherosclerosis of right carotid artery (I65.21):?? Asa 81mg, atorvastatin to 40 mg daily Est. w/ [facility] vasc??surg ?? Benign prostatic hyperplasia (N40.0):?? Con't??home??finasteride ?? VTE Prophylaxis:??Ambulatory ?VTE Prophylaxis Assessment:??Excluded from VTE prophylaxis measure ?? Discharge Planning:??Home, independent ?? Code Status:??FULL confirmed at bedside ?Order Code Status:??Code Status Ordered ? Measurements?? Height: 180 cm (05/02/25) Weight: 72.5 kg (05/02/25) Dry Weight: 73 kg (04/30/25) Body Mass Index: 22.38 kg/m2 (05/02/25) ? Vital Signs?? Temperature: 97.9 DegF (05/02/25 08:29:00) Temperature Route: Oral (05/02/25 08:29:00) Pulse Rate:??52 bpm??Low (05/02/25 08:29:00) Heart Rate Monitored:??40 bpm??Low (05/01/25 15:45:52) Respiratory Rate: 18 br/min (05/02/25 08:29:00) Systolic Blood Pressure: 109 mm Hg (05/02/25 08:29:00) Diastolic Blood Pressure: 65 mm Hg (05/02/25 08:29:00) Blood pressure sites: Arm, left (05/02/25 08:29:00) Mean Arterial Pressure: 80 mm Hg (05/02/25 08:29:00) Pulse Pressure: 44 mm Hg (05/02/25 08:29:00) Oxygen Saturation: 99 % (05/02/25 08:29:00) Mode of Delivery (Oxygen): Room air (05/02/25 08:29:00) Early Warning Score: 2 (05/02/25 08:30:35) ? . Physical Exam ?General: Lying in bed. Afebrile. NAD. ?Eye: Normal conjunctiva ?HEENT: Normocephalic ?Neck: Supple ?Resp: Nonlabored respirations, CTA, BS+, Equal B/L ?CVS: Normal rate, RRR, No R/M/G, no edema ?GI: Soft, ND, NT. ?Integumentary: Warm, Dry ?Extremities: no left radial swelling or hematoma Pending Results Add On Lab Order ordered on 05/01/2025 CBC ordered on 04/30/2025 Patient Education Titles WebMD Ignite Patient Education - Discharge Instructions for Cardiac Catheterization?? WebMD Ignite Patient Education - Having Cardiac Catheterization?? Follow-Up Appointments Added Follow Up ?Time Frame ?Comments [facility] Outpatient Cardiac Rehab?[phone] Vinny Fallon Patient Instructions You were admitted for evaluation of chest pain, you??were seen by cardiology, and underwent??cath.??A??stent??was??placed in left??side.??Please??take ASA,??Plavix??and statin.??Cardiology will??arrange??for a??follow??up.?? Please follow-up with PCP within 1-2 weeks.??If you do not have a primary care doctor, see the provided list or call the PCP referral line at [phone] to find a primary care doctor. Follow up with your primary care doctor as soon as possible. Please return to ED if you feel chest pain, shortness??of breath,??dizzy, palpitations, or new worsening symptoms.?? Post Discharge Care Diet: ??Cardiac diet ?? Code Status: ??Full ?? Condition: ??Stable ?? Prognosis: ??Fair ?? Discharge ?05/02/25 9:07:00 EDT ?Order Comment:?? Discharge Prescriptions ?ePrescribed, 05/02/25 9:07:00 EDT ?Order Comment:?? Home Health Face to Face ^HomeHealthFTF Results Discharge Labs BLOOD BANK Blood Type A Negative ()?? 04/30/2025 14:06 Antibody Screen Negative ()?? 04/30/2025 14:06 ?? BLOOD COUNT & DIFF WBC 10.4 k/mm3 ()?? 05/02/2025 00:23 RBC 4.74 m/mm3 ()?? 05/02/2025 00:23 Hgb 14.8 Gm/dL ()?? 05/02/2025 00:23 Hct 43.5 % ()?? 05/02/2025 00:23 MCV 91.8 femtoliters ()?? 05/02/2025 00:23 MCH 31.2 pg ()?? 05/02/2025 00:23 MCHC 34.0 Gm/dL ()?? 05/02/2025 00:23 Platelet Count 220 k/mm3 ()?? 05/02/2025 00:23 RDW-SD 41.9 femtoliters ()?? 05/02/2025 00:23 MPV 10.9 femtoliters ()?? 05/02/2025 00:23 Nucleated RBC (Automated) 0.0 #/100 WBC'S ()?? 05/02/2025 00:23 Abs. NRBC 0.0 k/mm3 ()?? 05/02/2025 00:23 Abs. Neut 5.2 k/mm3 ()?? 05/01/2025 06:04 Abs. Lymph 1.9 k/mm3 ()?? 05/01/2025 06:04 Abs. Adams 0.7 k/mm3 ()?? 05/01/2025 06:04 Abs. Eo 0.1 k/mm3 ()?? 05/01/2025 06:04 Abs. Baso 0.1 k/mm3 ()?? 05/01/2025 06:04 Neut % 65.4 % ()?? 05/01/2025 06:04 Lymph % 23.7 % ()?? 05/01/2025 06:04 Adams % 8.6 % ()?? 05/01/2025 06:04 Eos % 1.1 % ()?? 05/01/2025 06:04 Baso % 0.8 % ()?? 05/01/2025 06:04 Imm Gran 0.4 % ()?? 05/01/2025 06:04 Abs. Imm Gran 0.0 k/mm3 ()?? 05/01/2025 06:04 ?? CARDIAC High Sensitivity Troponin (HSTnT) 433 ng/L (Critical)?? 05/01/2025 12:09 ? CHEM GENERAL Sodium 137 mmol/L ()?? 05/02/2025 00:23 Potassium 3.9 mmol/L ()?? 05/02/2025 00:23 Chloride 105 mmol/L ()?? 05/02/2025 00:23 Bicarbonate Level 21 mmol/L (Low)?? 05/02/2025 00:23 Anion Gap 11 mmol/L ()?? 05/02/2025 00:23 Glucose Level 97 mg/dL ()?? 05/02/2025 00:23 Hemoglobin A1C (Monitoring) 5.8 % (High)?? 05/01/2025 06:04 BUN 16 mg/dL ()?? 05/02/2025 00:23 Creatinine-Blood 0.96 mg/dL ()?? 05/02/2025 00:23 Estimated GFR Creatinine 83 ML/MIN/1.73 M2 ()?? 05/02/2025 00:23 Calcium 8.7 mg/dL ()?? 05/02/2025 00:23 Phosphorus 2.7 mg/dL ()?? 05/02/2025 00:23 Magnesium 2.0 mg/dL ()?? 05/02/2025 00:23 Protein, Total 6.9 Gm/dL ()?? 05/01/2025 06:04 Albumin 4.0 Gm/dL ()?? 05/01/2025 06:04 AG Ratio 1.4 ()?? 05/01/2025 06:04 Alkaline Phosphatase 78 units/L ()?? 05/01/2025 06:04 AST (SGOT) 65 units/L (High)?? 05/01/2025 06:04 ALT (SGPT) 27 units/L ()?? 05/01/2025 06:04 Bilirubin, Total 1.2 mg/dL ()?? 05/01/2025 06:04 ?? COAG APTT 48.7 seconds (High)?? 05/01/2025 12:09 POC ACT-LR 299.0 seconds ()?? 05/01/2025 14:55 ?? ENDOCRINE/TUMOR MARKER TSH 2.09 uIU/mL ()?? 05/01/2025 06:04 ? HEME OTHER Hold Blue Top SPECIMEN DISCARDED AFTER 4 HOURS. ()?? 04/30/2025 07:55 ? URINE OTHER Est Creatinine Clearance 70.76 mL/min ()?? 05/02/2025 01:27 ? 35 minutes spent on discharge * Ronni NGO, Denae Greenberg: PERFORM Event Display: Patient Education/Instruction Authored Date: [id number] Inpatient Adult Discharge Instructions. [address] [address] Name: PABLO BAUM : 1950?? Visit: 04/30/2025 11:58?? Current Date: 05/02/2025 09:41 ?? Account: [id number]?? Inpatient Adult Discharge Instructions We would like to thank you for allowing us to assist you with your healthcare needs. The following includes patient education materials and information regarding your injury/illness. Our entire staffstrives to provide an excellent experience for our patients and their families. PLEASE ENSURE YOU FOLLOW-UP PER THE INSTRUCTIONS BELOW! ?? YOUR OPINION IS IMPORTANT TO US! Please complete the survey you may receive by mail or email. Your feedback will be used to make improvements to the healthcare experiences of our patients and their families. Surveys are administered by [employer] ?? If further treatment with your primary care physician or another doctor is recommended, it is important for you to keep the appointment. Call your primary care physician or return to the Emergency Department immediately if your condition worsens, fails to improve, or new symptoms develop. If you need to find a doctor, you can call [facility] [facility] for a referral at [phone] or toll free at [phone]) or log in to [email or web address].. ?? [facility], in keeping with [facility] guidance, no longer requires face masks for staff, patientsor visitors in most situations. Similiar to time spent indoors at other locations, there is the chance that you were exposed to repiratory viruses during your time with us (such as flu or COVID-19). If you develop symptoms concerning for a viral respiratory infection, please seek testing (and treatment if indicated) from your medical provider or home test kit. ?? You can view and manage your care through the patient portal or by using a health care keeley of your choosing. [employer] is a website that allows you to securely view your medical information including your hospital discharge summary, office visit summaries, medications and follow-up visits. You can also request appointments, renew medications, and request access to your medical information using a health care keeley of your choosing, or just ask a question. You are entitled to know the individuals who participated in your treatment. This information is available within your medical record and will be provided upon your request. You can enroll at [email or web address] or register d uring your next office visit. You have been discharged from [facility], Patient Care Unit: M5??. If you have any questions regarding these instructions, including results of studies pending, afteryou leave, please call us and we will be happy to assist you 30/04. [facility] Your Care Team Attending Physician Claudio Metzger MD?? Consulting Providers Claudio Metzger MD?? Discharging Providers Claudio Metzger MD Reason for Your Visit Rising trops on hep CP free?? Your Diagnosis Atherosclerosis of right carotid artery Hyperlipidemia Benign prostatic hyperplasia Tests Performed Below is a partial list of the tests performed during your hospitalization. You may have had other tests and procedures not included in this list. Please discuss all test results with your provider. Basic Metabolic Panel CBC CBC w/ Differential Comprehensive Metabolic Panel Hemoglobin A1c, (Diagnostic) High Sensitivity Troponin T Hold Blue Top Tube Magnesium Level Phosphorus Level POC Hemochron ACT-LR PTT Troponin T, High Sensitivity TSH with T4 Reflex (Adults Only) Type and Screen XR Chest 2 Views Frontal and Lat Add On Lab Order?? Basic Metabolic Panel?? CBC?? CBC w/ Differential?? Comprehensive Metabolic Panel?? Hemoglobin A1C (Monitoring) (Hemoglobin A1c, (Diagnostic))?? High??Sensitivity??Troponin T (Troponin T, High Sensitivity)?? Hold Blue Top Tube?? Magnesium Level?? POC ACT-LR (POC Hemochron ACT-LR)?? PTT?? Phosphorus Level?? TSH with T4 Reflex (Adults Only)?? Type and Screen?? Chest 2 Views Frontal and Lat (XR Chest 2 Views Frontal and Lat)?? Primary Care Provider Vinny Fallon DO? Advance Directive Health Care Proxy on File Yes - Health Care Proxy Discharge Vitals Temperature: 97.9 DegF Height: 180 cm Pulse Rate:??52 bpm??Low Weight: 72.5 kg Respiratory Rate: 18 br/min Body Mass Index: 22.38 kg/m2 Systolic Blood Pressure: 109 mm Hg Body surface area: 1.9 Diastolic Blood Pressure: 65 mm Hg ?? Oxygen Saturation: 99 % ?? Studies Pending All studies ordered during this hospital stay have been completed unless listed below. Please discuss all pending results with your provider listed above in these instructions. ?? Add On Lab Order?? CBC?? What to do next Instructions From Your Doctor You were admitted for evaluation of chest pain, you??were seen by cardiology, and underwent??cath.??A??stent??was??placed in left??side.??Please??take ASA,??Plavix??and statin.??Cardiology will??arrange??for a??follow??up.?? Please follow-up with PCP within 1-2 weeks.??If you do not have a primary care doctor, see the provided list or call the PCP referral line at [phone] to find a primary care doctor. Follow up with your primary care doctor as soon as possible. Please return to ED if you feel chest pain, shortness??of breath,??dizzy, palpitations, or new worsening symptoms.? Orders??:Cardiac diet Status:Full :Stable :Fair? 05/02/25 9:07:00 EDT?? Prescriptions??, ??05/02/25 9:07:00 EDT?? Scheduled Follow-Up Appointments Sunday 11:30 AM EDT ?? Where: [facility] [address] [address]- Status: Pending 2024 10:00 AM EDT ?? With: Lisa DONNELLY, René Stoll Where: [facility] [address] [place] [address]- Status: Pending You Need to Schedule the Following Appointments Follow Up with??[facility] Outpatient Cardiac Rehab Why: [phone] Where: [address] [place], [place] Follow Up with??Vinny Fallon When:??In 0 days Where: [address] [place] [address], [place] [address]- Business (1) Discharge Medications PABLO BAUM :1950 Visit Date:04/30/2025 Medications: Please continue your medications until treatment is completed or stopped by your provider. Medications not listed below should be discontinued. Discuss any questions related to medications with your provider. What How Much When Instructions Next Dose New Ticagrelor (ticagrelor 90 mg oral tablet) 1 tab(s) Oral Twice a day Duration: 90 Days Pickup at [facility] Tonight Changed Aspirin (aspirin 81 mg oral delayed release tablet) 1 tab(s) Oral Daily Duration: 90 Days Pickup at [place] [address] Tomorrow Changed Atorvastatin (atorvastatin 40 mg oral tablet) 1 tab(s) Oral Daily at Bedtime Duration: 90 Days Pickup at [place] [address] Bedtime Unchanged Cholecalciferol (Vitamin D3 1000 intl units oral tablet) 1 tab(s) Oral Daily resume Unchanged Chondroitin-Glucosamine Oral resume Unchanged Finasteride (finasteride 5 mg oral tablet) resume Unchanged Multivitamin With Minerals (Multi-Day Plus Minerals) Oral Daily resume Pharmacy Information [facility]: [address] [place], [place] [phone] Prescription Given During Visit Aspirin (aspirin 81 mg oral delayed release tablet) - 1 tablet = 81 mg, By Mouth, Daily, # 90 tablet, 0 Refills, [facility], [address] [place] [phone]?? Atorvastatin (atorvastatin 40 mg oral tablet) - 1 tablet = 40 mg, By Mouth, Daily at bedtime, # 90 tablet, 0 Refills, [facility], [address] [place] [phone]?? Ticagrelor (ticagrelor 90 mg oral tablet) - 1 tablet = 90 mg, By Mouth, 2 times a day, # 180 tablet, 0 Refills, [facility], [address] [place] [phone]?? Laboratory Results Below is a partial list of the most recent Laboratory test results done prior to this discharge. You may have had other tests and procedures not included in this list. Please discuss all test resultswith your provider. Est Creatinine Clearance - 70.76 mL/min (05/02/2025) Basic Metabolic Panel (05/02/2025) ???Sodium - 137 mmol/L???Potassium - 3.9 mmol/L???Chloride - 105 mmol/L???Bicarbonate Level - 21 mmol/L???Anion Gap - 11 mmol/L???Glucose Level - 97 mg/dL???BUN - 16 mg/dL???Creatinine-Blood - 0.96 mg/dL???Estimated GFR Creatinine - 83 ML/MIN/1.73 M2???Calcium - 8.7 mg/dL CBC (05/02/2025) ???WBC - 10.4 k/mm3???RBC - 4.74 m/mm3???Hgb - 14.8 Gm/dL???Hct - 43.5 %???MCV - 91.8 femtoliters???MCH - 31.2 pg???MCHC - 34.0 Gm/dL???Platelet Count - 220 k/mm3???RDW-SD - 41.9 femtoliters???MPV - 10.9 femtoliters???Nucleated RBC (Automated) - 0.0 #/100 WBC'S???Abs. NRBC - 0.0 k/mm3 CBC w/ Differential (05/01/2025) ???WBC - 7.9 k/mm3???RBC - 5.09 m/mm3???Hgb - 15.6 Gm/dL???Hct - 47.3 %???MCV - 92.9 femtoliters???MCH - 30.6 pg???MCHC - 33.0 Gm/dL???Platelet Count - 245 k/mm3???RDW-SD - 42.8 femtoliters???MPV - 10.9 femtoliters???Nucleated RBC (Automated) - 0.0 #/100 WBC'S???Abs. NRBC - 0.0 k/mm3???Abs. Neut - 5.2 k/mm3???Abs. Lymph - 1.9 k/mm3???Abs. Adams - 0.7 k/mm3???Abs. Eo - 0.1 k/mm3???Abs. Baso - 0.1 k/mm3???Neut % - 65.4 %???Lymph % - 23.7 %???Adams % - 8.6 %???Eos % - 1.1 %???Baso % - 0.8 %???Imm Gran - 0.4 %???Abs. Imm Gran - 0.0 k/mm3 Comprehensive Metabolic Panel (05/01/2025) ???Sodium - 138 mmol/L???Potassium - 4.4 mmol/L???Chloride - 104 mmol/L???Bicarbonate Level - 25 mmol/L???Anion Gap - 9 mmol/L???Glucose Level - 85 mg/dL???BUN - 17 mg/dL???Creatinine-Blood - 1.02 mg/dL???Estimated GFR Creatinine - 78 ML/MIN/1.73 M2???Calcium - 9.5 mg/dL???Protein, Total - 6.9 Gm/dL???Albumin - 4.0 Gm/dL???AG Ratio - 1.4???Alkaline Phosphatase - 78 units/L???AST (SGOT) - 65 units/L???ALT (SGPT) - 27 units/L???Bilirubin, Total - 1.2 mg/dL Hemoglobin A1c, (Diagnostic) (05/01/2025) ???Hemoglobin A1C (Monitoring) - 5.8 % High Sensitivity Troponin T (05/01/2025) ???High Sensitivity Troponin (HSTnT) - 464 ng/L Hold Blue Top Tube (04/30/2025) ???Hold Blue Top - SPECIMEN DISCARDED AFTER 4 HOURS. Magnesium Level (05/02/2025) ???Magnesium - 2.0 mg/dL Phosphorus Level (05/02/2025) ???Phosphorus - 2.7 mg/dL POC Hemochron ACT-LR (05/01/2025) ???POC ACT-LR - 299.0 seconds PTT (05/01/2025) ???APTT - 48.7 seconds Troponin T, High Sensitivity (05/01/2025) ???High Sensitivity Troponin (HSTnT) - 433 ng/L TSH with T4 Reflex (Adults Only) (05/01/2025) ???TSH - 2.09 uIU/mL Type and Screen (04/30/2025) ???Blood Type - A Negative???Antibody Screen - Negative You will be contacted within 72 hours with your results. Allergies (NKA means No Known Allergies) NKA Problems Active Problems??(5) Atherosclerosis of right carotid artery?? Benign prostatic hyperplasia?? Herpes zoster?? Hyperlipidemia?? Nocturnal leg cramps?? Education Materials Below is the list of Educational Leaflet Providered with your Discharge Instructions. [employer] Patient Education - Discharge Instructions for Coronary Angioplasty and Stenting?? [employer] Patient Education - Discharge Instructions for Cardiac Catheterization?? [employer] Patient Education - Having Cardiac Catheterization?? Valuables and Belongings I fully understand and agree that [facility] accepts no responsibility for all my personal property including clothing, toilet articles, radios, jewelry, dentures, hearing aids, rings, money, or any other property that is in my possession or is brought to me after admission. I understand certain valuables may be placed in a hospital safe for a short period of time. I understand that the hospital is not liable for loss or damage due to accident, fire, or other natural occurrence while said property is in the safe. I accept full responsibility for any personal property that I keep with me, and will not hold the hospital responsible in case of loss or disappearance. I acknowledge that i have been encouraged to send valuables and belongings home. ?? Date for Pt to Sign Valuables/Belongings: 04/30/25 13:11:00 ?? Other Discharge Information ? Pulmonary Rehab Status?? Pulmonary Rehab Discharge Status?? Respiratory Rate: 18 br/min ? Cardiac Rehab Assessment?? Cardiac Rehab Inpatient Assessment?? Comments-Education: S/P [place]/stent card reviewed Comments-Exercise Activity: INCREASE TOLERATED/PHASE 2 Comments-Nutrition: HEART HEALTHY DIET Comments-Lipids: FOLLOWED BY PCP Patient attending Phase II: Yes Phase II Site of Care: [facility] [address] [facility] [phone] Common Emergency Awareness Tips IS IT A STROKE? Act FAST and Check for these signs: FACE Does the face look uneven? ARM Does one arm drift down? SPEECH Does their speech sound strange? TIME Call at any sign of stroke ?? Heart Attack Signs Chest discomfort: Most heart attacks involve discomfort in the center of the chest and lasts more than a few minutes, or goes away and comes back. It can feel like uncomfortable pressure, squeezing, fullness or pain. Discomfort in upper body: Symptoms can include pain or discomfort in one or both arms, back, neck, jaw or stomach. Shortness of breath: With or without discomfort. Other signs: Breaking out in a cold sweat, nausea, or lightheaded. Remember, MINUTES DO MATTER. If you experience any of these heart attack warning signs, call to get immediate medical attention! ?? Smoking can increase your chances of developing chronic health problems and can cause harmful effects to other family members in your house. If you smoke, you are strongly encouraged to quit. Please call [facility] [employer] at [phone] or [phone] Data ([phone]) or log in to [email or web address] for referrals to smoking cessation programs. ?? 120 Suicide & Crisis Lifeline is available 30/04 if you or someone you know needs to find a reason to keep living. By calling 749 you'll be connected to a skilled, trained counselor at a crisis center in your area. INPATIENT DISCHARGE INSTRUCTIONS SIGNATURE PAGE PABLO BAUM Location:[facility] Registration Date and Time:04/30/2025 11:58 EDT Primary Care Physician: Vinny Fallon DO, Attending Physician: Claudio Metzger MD, I SARIKA PABLO, have received the above patient education materials/instructions and have verbalized understanding. If ambulance or transport services are being used I further acknowledge being givena choice of service. ?? If you need to contact me, please call me at this number: . Patient/Turning Machine Operator Helper Name: Patient/Turning Machine Operator Helper Signature: Relationship to Patient: Witness Name/Signature: Date: * Paige Laguna: PERFORM, SIGN, VERIFY Event Display: Patient Education Handout Authored Date: [id number] * Ronni NGO, Denae Greenberg: PERFORM Event Display: Patient Education Leaflets Authored Date: [id number] Discharge Instructions for Coronary Angioplasty and Stenting ?? 66498 Discharge Instructions for Coronary Angioplasty and Stenting During your angioplasty,??a health care provider inserts a thin tube called a catheter into a bloodvessel??in your groin or wrist. The??catheter is guided through your blood vessel to a blocked areain 1 of your heart???s arteries. The provider inflates a tiny balloon at the tip of the catheter and stretches the blocked vessel so blood can flow freely. The balloon is then deflated and removed with the catheter. The provider may also insert a metal mesh tube called a stent in the blocked vessel.??The stent helps the vessel stay open. You may get several stents if you have blockages in more than 1 of your arteries. Home care ??? Ask someone to drive you to your appointments for the next few days. ??? Rest for?? 2to 3??days after the procedure. Most people are able to go back to normal activity within a few days. ??? Check your incision for signs of infection every day for a week.??Signs of infection include redness, swelling, drainage, or warmth. It's normal to have a small bruise or bump where the catheter was inserted. Take your temperature if you have fever or chills. ??? Take your medicines exactly as directed. Don???t skip doses. It's important to take aspirin or other similar medicines for as long as your provider advises. If you were also prescribed clopidogrel, prasugrel, or ticagrelor, it's very important to take these medicines as well. These medicines prevent clots that could cause a heart attack. If you have??a problem with any of your medicines, call your health care provider right away. And call your provider right away if you have bleeding,??but go to the emergency room if the bleeding can't be controlled. ??? Unless told otherwise, drink plenty of fluids to help flush your body of the dye that was used during your angioplasty. Let your provider know if the color of your urine changes and doesn't return to normal color. ??? Eat a healthy diet that is low in fat, salt, extrasugar, and cholesterol. Ask your care??team for menus and other diet information. ??? Exercise according to your care team's advice. Depending on your case, your team may recommend you start a cardiac rehabilitation program. Cardiac rehab is an exercise program in which trained health care staff keep track of your progress and stress on your heart while you exercise. Ask how to enroll if your team recommends this program. ??? Don't swim or take a bath for 5 to 7 days. You may shower the day after the procedure, or as your provider has instructed. This keeps the incision site from getting too wet and possibly infected until the skin and artery can heal. ?? Follow-up care ??? Make a follow-up appointment as directed. Follow-up appointments are usually scheduled for 2 to 4 weeks after an angioplasty or coronary stent procedure. ??? Have a yearly checkup to make sure you are still doing well and not having any new symptoms. ??? Don't wait for a follow-up appointment if your medicines are not working or you are having heart-related symptoms. ?? When to call your doctor Contact your health care provider right away if you have: ??? Chest pain or a return of the symptoms you had before the angioplasty that are promptly relieved with rest or medicines. ??? Fever above?? 100.4?? F??( 38??C) (or 1 degree or higher above your normal temperature); or other signs of infection (redness, swelling, drainage, or warmth at the incision site of the leg or wrist). ??? Bleeding, bruising, or a large swelling where the catheter (tube) was inserted. ?? Call 911 Call 911 if you have symptoms such as: ??? Unusual chest pain or chest pain that doesn't go away. ??? Symptoms that you had before the angioplasty return and aren't eased with rest or medicines. ??? Constant or increasing pain or numbness in your leg, or your leg looks blue or feels cold. ??? Unusual shortness of breath. ??? Feeling faint. ??? Trouble speaking or weakness in any muscle. ??? Bloodin your urine; bloody, black, or tarry stools; or any other kind of bleeding. ?? Last Reviewed Date: 2024 00:00:00 ?? [id number] [employer]. All rights reserved. This information is not intended as a substitute for professional medical care. Always follow your healthcare professional's instructions. ?? * Yassine DONNELLY, Claudio Dejesus: PERFORM Event Display: Patient Education Leaflets Authored Date: [id number] Discharge Instructions for Cardiac Catheterization ?? 05725 Discharge Instructions for Cardiac Catheterization Cardiac catheterization??is an invasive??procedure??to look for certain heart problems. These problems may affect the heart's chambers, valves, and blood vessels. A thin, flexible tube (catheter) is put in a blood vessel in your groin or arm. The catheter is moved to the heart. The health care provider can look at the blood flow, blood pressure, and oxygen. They can inject contrast fluid??into your blood. This flows to your heart.??The provider can then take X-rays pictures??of your heart. Coronary angiography is often done as part of a cardiac cath. This looks for blocked areas in the arteries that send blood to the heart. If a blockage is found, your provider may try to open up the artery. They may put a stent in place. Your provider will talk with you about the results of your procedure . Ask any questions you have before you leave. This sheet will help you take care of yourselfat home. Home care ??? Have a responsible adult drive you home after your procedure. ??? Don't drive or makeany important decisions for at least 24 hours after getting any type of sedation or anesthesia.? Drink?? 6 to 8??glasses of water over the next 24 hours. This is to help flush the contrast dye out of your body. Call your health care team if your urine has any change in color. ??? Take your temp erature every day for 3 to 5 days. If you feel cold and clammy or start sweating, take your temperature right away. Call your health care team. ??? Do only light and easy activities for??the next?? 2to 3??days. Ask for help with chores and errands while you recover. Have someone drive you to your a [facility]. ??? Don't lift anything heavy??until your health care team says it's safe. ??? Ask your health care team when you can expect to return to work. Unless your job involves lifting, you may be able to return to your normal activities within 2 days. ??? Take your medicines as directed. Don't skip doses. ??? Check your incisions every day for signs of infection. These include redness, swelling, and fluid leaking. It's normal to have a small bruise or bump where the catheter was put in. Abruise that's getting larger is not normal. Tell your health care team about this. Call your team if you see blood forming in the incision. Go to the emergency room if you have uncontrolled bleeding from the artery site. This is even more important if you take medicines that make it hard for your blood to clot. These include aspirin, clopidogrel, prasugrel, and brilinta. ??? Eat a healthy diet. Make sure it's low in fat, salt, and cholesterol. Ask your health care team for diet information. ???Stop smoking. Sign up for a quit-smoking program. Or ask your health care team for help. ??? Exercise as your health care team tells you to. Your team??may advise you to start a cardiac rehab program. Cardiac rehab is an exercise program where trained health care staff watch your progress and stress on your heart while you exercise. Ask your team how to enroll. ??? Don't swim or take baths until your health care team says it???s OK. You can shower the day after the procedure. Keep the site clean and dry. This keeps the incision from getting wet and infected until the skin and artery can heal.??? Follow all other after-care instructions from your team.? Follow-up care ??? Make a follow-up appointment as advised. It's common to have a follow-up appointment 2 to 4 weeks after an angioplasty or coronary stent procedure. ??? Make a yearly appointment. This is??to make sure you're still doing well and not having any new symptoms. ??? Don't wait for a follow-up appointment if your medicines aren't working or you're having heart-related symptoms. Call your provider. ?? When to contact your doctor Contact your provider right away if: ??? You have severe or increasing pain, numbness, coldness, ora bluish color in the leg or arm that held the catheter. ??? You have a fever of 100.4?? F??( 38??C) or higher, or as advised by your provider. ??? There are signs of infection at the incision site. These include redness, swelling, drainage, or warmth. ??? There is bleeding, bruising, or a lot of??swelling where the catheter was inserted. ??? You have blood in your urine. ??? Your stools are black or tarry. ??? You have any unusual bleeding. ??? Your heartbeat is irregular, very slow, or fast. ??? You are dizzy. ?? Call 911 Call 911 if: ??? You have chest pain. ??? You are short of breath. ??? You feel sudden numbness or weakness in arms, legs, or face, or have trouble speaking. ??? The puncture site swells up very fast. ??? You have bleeding from the puncture site that doesn't slow down with firm pressure. ?? Last Reviewed Date: 2024 00:00:00 ?? [employer]. All rights reserved. This information is not intended as a substitute for professional medical care. Always follow your healthcare professional's instructions. ?? * Yassine DONNELLY, Claudio Dejesus: PERFORM Event Display: Patient Education Leaflets Authored Date: [id number] Having Cardiac Catheterization ?? 02465 Having Cardiac Catheterization You may have had chest pain (angina), dizziness, or other symptoms of heart trouble. To help diagnose your problem, your health care provider??may advise a cardiac catheterization. This is a procedure that looks for a blockage or narrow area in the arteries around the heart.??These can cause chest pain or a heart attack if not treated. It can also be used to evaluate other problems with your heart. This common procedure may also be used to treat a heart problem. It may be done as a planned procedure if you've had chest pain in the past. Or it may be done right away to treat a suspected heart attack. The catheter may be placed in the arm or the groin. Before the procedure ??? Tell your health care team about all prescription medicines, [id number] medicines, vitamins, and supplements you take and about any allergies you have. ??? Follow any directions you're given for not eating or drinking before the procedure. ?? During the procedure ??? Hair may be trimmed where the catheter will be inserted. This may be in your leg (groin), wrist, or arm. ??? You may be given medicine to relax before the procedure. ??? You'll be given a local anesthetic to prevent pain at the insertion site. ??? A health care provider inserts a tube (sheath) into a blood vessel in your groin or arm. ??? Through the sheath, a long, thin tube called a catheter is placed inside the artery. The catheter is then guided toward your heart under X-ray guidance. ??? The catheter can then be used to measure pressures in the heart. It can takeblood samples if needed. It can also be used to inject contrast liquid into the heart arteries to look for blockages. This is called angiography. ?? After the procedure ??? Your health care providers will tell you how long to lie down and keep the insertion site still. ??? If the insertion site was in your groin, you may need to lie down with your leg still for up to 6 or more hours. A stitch (suture) or closure device such as a collagen plug??may be used on the artery site to close the site. If so, you may be able to move sooner. This depends on any bleeding that occurs. ??? If your arm was used, you may need to wear a special type of immobilizing device and pressure bandage for a few hours after the procedure. ??? A nurse will check theinsertion site and your blood pressure. ??? You may be asked to drink fluid. This is to help flush the contrast liquid out of your system. ??? Have someone drive you home from the hospital. ??? It???s normal to find a small bruise or lump at the insertion site. This should go away in a few weeks. ?? When to call your doctor Contact your health care provider??or seek medical care right away if you: ??? Have pain, swelling,redness, warmth, bleeding, or fluid leaking at the insertion site. ??? Are unable to pee. ??? Have blood in your urine, black or sticky stools, or any other kind of bleeding. ??? Have a fever of 100.4??F??( 38.0??C) or higher, or as advised by your provider. ?? Call 911 Call 911 if: ??? You have chest pain or pressure, nausea or vomiting, heavy sweating, dizziness, or fainting. ??? You are short of breath or have trouble breathing. ??? You have severe pain, coldness, or a bluishcolor in the leg or arm where the catheter was inserted. ??? You have sudden numbness or weakness in your arms, legs, or face, or you have trouble speaking. ??? The puncture site swells up very fast.??? Bleeding from the puncture site doesn't slow down when you press on it firmly. ?? Last Reviewed Date: 2024 00:00:00 ?? [id number] [employer]. All rights reserved. This information is not intended as a substitute for professional medical care. Always follow your healthcare professional's instructions. ?? Admission evaluation note * Kendrick Booth MD: MODIFY, PERFORM, MODIFY, MODIFY, MODIFY, MODIFY Event Display: Admission Note Authored Date: [id number] Patient: ??PABLO BAUM ? Age:??74 Years?Sex:??Male?:??1950?? History of Present Illness This is a 74-year-old male with past medical history of bilateral carotid stenosis 50% narrowing, BPH, herpes zoster, HLD, nocturnal leg cramps, PVD who presents to the emergency department with chest pain that occurred during workout. ?? Per the ED: ?? Patient works out at this class twice a week, developed chest burning shortly after starting this class around 5:50 AM 04/30, he was able to complete the class however the burning in his chest which he describes as that sensation you get when you are sprinting, all over your chest that persisted after the class had ended, had thought about stopping which is unusual for him.?? Following the classhe sat in his car for a while, drove home, sensation persisted which prompted emergency department evaluation.?? Other than this burning chest discomfort he denies chest pain, radiation, nausea, vomiting, diaphoresis after the class had ended the burning sensation does not radiate, he is endorsing s hooting pains down his left arm which he says is chronic and occurred after he pulled a muscle about 3 weeks ago in his neck with intermittent shooting pains down his left arm.?? Otherwise no abdominal pain, fevers, chills, cough. ?? At bedside Confirmed story. He is now CP free and comfortable. No symptoms now. 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 ?? Vitals: Afebrile, nontachycardic, normotensive, saturating well on room air CBC: Unremarkable Chemistry unremarkable Troponin 28 then 120 CXR no acute abnormality ECG: Sinus bradycardia ?? In the ED given 243 mg of ASA (this patient already took 81 this morning) and started on heparindrip with bolus. Patient admitted for NSTEMI. Review of Systems Constitutional: No fever or chills Cardiac: No Chest pain, no palpitations, no lightheadedness?? Respiratory: No shortness of breath, no cough?? Gastrointestinal: No diarrhea or constipation, no nausea or abdominal pain? Neurological: No headache Extremities: No weakness, swelling or pain Objective Vital Signs?? Temperature: 97.5 DegF (04/30/25 07:43:00) Temperature Route: Oral (04/30/25 07:43:00) Pulse Rate: 77 bpm (04/30/25 10:35:00) Respiratory Rate: 18 br/min (04/30/25 10:35:00) Systolic Blood Pressure: 132 mm Hg (04/30/25 10:35:00) Diastolic Blood Pressure: 80 mm Hg (04/30/25 10:35:00) Blood pressure sites: Arm, left (04/30/25 10:35:00) Mean Arterial Pressure: 96 mm Hg (04/30/25 07:43:00) Pulse Pressure: 52 mm Hg (04/30/25 10:35:00) Oxygen Saturation: 100 % (04/30/25 10:35:00) Mode of Delivery (Oxygen): Room air (04/30/25 10:35:00) ? Physical Exam General: Patient in no acute distress?? HEENT: normocephalic, atraumatic Respiratory: bilateral equal air entry, clear to auscultation with no wheezes or crackles. CVS: regular rate and rhythm, S1 and S2 present, no murmurs. No JVD.?? Abdomen: soft, non tender, non distended, bowel sounds present. Extremities: No edema noted bilaterally. Neuro: alert and oriented x3. Moving all extremities spontaneously. Following simple commands. Assessment/Plan Diagnoses NSTEMI (non-ST elevated myocardial infarction) ??(I21.4) 1. ??Atherosclerosis of right carotid artery ??(I65.21) 2. ??Hyperlipidemia ??(E78.5) 3. ??Benign prostatic hyperplasia ??(N40.0) ?? Assessment:??This is a 74-year-old male with past medical history of bilateral carotid stenosis 50%narrowing, BPH, herpes zoster, HLD, nocturnal leg cramps, PVD who presents to the emergency department with chest pain that occurred during workout. Presentation and increased troponin c/w NSTEMI. Consulted cards. On Heparin GGT NSTEMI (non-ST elevated myocardial infarction) (I21.4) ?Associated with??Hyperlipidemia (E78.5) ? Non-ST elevation myocardial infarction Presented with CP EKG did not reveal ST elevations, NSR. [id number] then 120.?? RF:??HLD Loaded with??Aspirin??and started on heparin drip in the ED. Current symptoms and exam: Asymptomatic ? Plan: ??? Continue heparin drip ?Continue aspirin 81mg daily ???Consult cardiology??for potential cardiac cath ?Pending??clopidogrel vs ticagrelor s/p cardiac cath ???Increase atorvastatin from??20 mg to 40 mg ??? Plan to Start metoprolol 12.5 mg BID s/p revascularization (not on BB at home) ??? Start ACEi vs Entresto if LVEF reduced and BP tolerates (will await for echo) ??? Trend troponin till peak ???TSH, Hemoglobin A1c and lipid profile for risk stratification ??? Complete Echocardiogram ??? monitoring coordinator -NPO at midnight ?? Atherosclerosis of right carotid artery (I65.21):??Increased atorvastatin to 40 mg daily Est. w/ [facility] vasc??surg ?? Benign prostatic hyperplasia (N40.0):??Con't??home??finasteride ?? VTE Prophylaxis:??Heparin GGT ?VTE Prophylaxis Assessment:??Excluded from VTE prophylaxis measure ?? Discharge Planning:??Home ?? Ongoing Medical Necessity:??NSTEMI mgmt ?? Code Status:??FULL confirmed at bedside ?Order Code Status:??Code Status Ordered ?Patient case and plan discussed with Dr. Buckley ?? Kendrick Booth MD Internal Medicine PGY-3 ?? Histories Allergies Allergies ?(Active and Proposed Allergies Only) NKA? (Severity: Unknown severity, Onset: Unknown) ? Past Medical History/Problem List Active Problems(5) Atherosclerosis of right carotid artery Benign prostatic hyperplasia Herpes zoster Hyperlipidemia Nocturnal leg cramps ? Past Surgical History No surgery history documented. ? Social History Tobacco Details:??Use: Never (less than 100 in lifetime). ? Family History No Family History documented. ? Medications Home Medications Aspirin (aspirin 81 mg oral delayed release tablet)??81 Milligram 1 tablet By Mouth Daily Atorvastatin (atorvastatin 20 mg oral tablet)??1 tab(s) By Mouth Daily Cholecalciferol (Vitamin D3 1000 intl units oral tablet)??1 tab(s) 25 Microgram By Mouth Daily Chondroitin-Glucosamine??By Mouth Multivitamin With Minerals (Multi-Day Plus Minerals)??By Mouth Daily ? Inpatient Medications Medications (10) Active SCHEDULED: (2) Aspirin 81 mg EC Tablet (aspirin 81 mg oral delayed release tablet) ??243 mg, By Mouth, Daily NaCl 0.9% Flush 3ml (NaCL 0.9% Flush) ??3 mL, IV Push, Every 8 hours CONTINUOUS: (1) Heparin 25,000 units / 250 mL D5W premix 25,000 units [12 units/kg/hr] + D5%W Premixed IV 250 mL (Heparin 25,000 units in 250 mL Premix 25,000 units [12 units/kg/hr] + D5%W Premixed IV 250 mL) ??250 mL, IV Infusion, 8.76 mL/hr PRN: (7) Acetaminophen 325 mg Tablet (Acetaminophen Tablet) ??650 mg, By Mouth, Every 4 hours Heparin 5000 units/mL Inj (1 mL) (Heparin Inj) ??4,500 units 0.9 mL, IV Push, Every 6 hours Heparin 5000 units/mL Inj (1 mL) (Heparin Inj) ??2,000 units 0.4 mL, IV Push, Every 6 hours Melatonin 3 mg Tablet (Melatonin Tablet) ??3 mg, By Mouth, Daily at bedtime NaCl 0.9% Flush 3ml (NaCL 0.9% Flush) ??3 mL, IV Push, Every 8 hours Polyethylene Glycol 17 Gm Powder (MiraLax Powder) ??17 Gm 1 pack/packet, By Mouth, Daily Senna Tablet ??8.6 mg 1 tablet, By Mouth, 2 times a day ? Results Recent Labs BLOOD COUNT & DIFF WBC 7.1 k/mm3 ()?? 04/30/2025 07:55 RBC 4.78 m/mm3 ()?? 04/30/2025 07:55 Hgb 14.8 Gm/dL ()?? 04/30/2025 07:55 Hct 44.9 % ()?? 04/30/2025 07:55 MCV 93.9 femtoliters ()?? 04/30/2025 07:55 MCH 31.0 pg ()?? 04/30/2025 07:55 MCHC 33.0 Gm/dL ()?? 04/30/2025 07:55 Platelet Count 229 k/mm3 ()?? 04/30/2025 07:55 RDW-SD 43.8 femtoliters ()?? 04/30/2025 07:55 MPV 11.1 femtoliters ()?? 04/30/2025 07:55 Nucleated RBC (Automated) 0.0 #/100 WBC'S ()?? 04/30/2025 07:55 Abs. NRBC 0.0 k/mm3 ()?? 04/30/2025 07:55 Abs. Neut 5.5 k/mm3 ()?? 04/30/2025 07:55 Abs. Lymph 0.9 k/mm3 ()?? 04/30/2025 07:55 Abs. Adams 0.5 k/mm3 ()?? 04/30/2025 07:55 Abs. Eo 0.1 k/mm3 ()?? 04/30/2025 07:55 Abs. Baso 0.1 k/mm3 ()?? 04/30/2025 07:55 Neut % 77.8 % (High)?? 04/30/2025 07:55 Lymph % 13.2 % (Low)?? 04/30/2025 07:55 Adams % 7.4 % ()?? 04/30/2025 07:55 Eos % 0.8 % ()?? 04/30/2025 07:55 Baso % 0.7 % ()?? 04/30/2025 07:55 Imm Gran 0.1 % ()?? 04/30/2025 07:55 Abs. Imm Gran 0.0 k/mm3 ()?? 04/30/2025 07:55 ?? CARDIAC High Sensitivity Troponin (HSTnT) 120 ng/L (Critical)?? 04/30/2025 10:30 ?? CHEM GENERAL Sodium 137 mmol/L ()?? 04/30/2025 07:55 Potassium 4.6 mmol/L ()?? 04/30/2025 07:55 Chloride 105 mmol/L ()?? 04/30/2025 07:55 Bicarbonate Level 22 mmol/L ()?? 04/30/2025 07:55 Anion Gap 10 mmol/L ()?? 04/30/2025 07:55 Glucose Level 92 mg/dL ()?? 04/30/2025 07:55 BUN 21 mg/dL ()?? 04/30/2025 07:55 Creatinine-Blood 1.04 mg/dL ()?? 04/30/2025 07:55 Estimated GFR Creatinine 76 ML/MIN/1.73 M2 ()?? 04/30/2025 07:55 Calcium 9.9 mg/dL ()?? 04/30/2025 07:55 ?? HEME OTHER Hold Blue Top SPECIMEN DISCARDED AFTER 4 HOURS. ()?? 04/30/2025 07:55 ?? URINE OTHER Est Creatinine Clearance 65.32 mL/min ()?? 04/30/2025 08:41 ? EKG study * Event Display: ECG 12-Lead Authored Date: Please click on pdf link to open report * Event Display: ECG 12-Lead Authored Date: Ventricular Rate: 40 BPM Atrial Rate: 40 BPM P-R Interval: 144 ms QRS Duration: 82 ms Q-T Interval: 524 ms QTC Calculation(Bazett): 427 ms P [place]: 59 degrees R [place]: -26 degrees T [place]: 103 degrees Marked sinus bradycardia T wave abnormality, consider anterolateral ischemia Abnormal ECG When compared with ECG of 30-Apr-2025 11:33, T wave abnormality, consider anterolateral ischemia Confirmed by JAIME PEREZ MD ([id number]) on 05/01/2025 3:35:18 PM Grant: JAIME PEREZ MD * Event Display: ECG 12-Lead Authored Date: [id number] Please click on pdf link to open report * Event Display: ECG 12-Lead Authored Date: [id number] Ventricular Rate: 54 BPM Atrial Rate: 54 BPM P-R Interval: 142 ms QRS Duration: 84 ms Q-T Interval: 438 ms QTC Calculation(Bazett): 415 ms P [place]: 65 degrees R [place]: -35 degrees T [place]: 66 degrees Sinus bradycardia Left axis deviation Abnormal ECG When compared with ECG of 30-Apr-2025 10:18, No significant change Confirmed by JUAN AKHTAR MD ([id number]) on 04/30/2025 12:29:50 PM Grant: JUAN AKHTAR MD * Event Display: ECG 12-Lead Authored Date: [id number] Please click on pdf link to open report * Event Display: ECG 12-Lead Authored Date: [id number] Ventricular Rate: 53 BPM Atrial Rate: 53 BPM P-R Interval: 142 ms QRS Duration: 86 ms Q-T Interval: 436 ms QTC Calculation(Bazett): 409 ms P [place]: 34 degrees R [place]: -32 degrees T [place]: 70 degrees Sinus bradycardia Left axis deviation Abnormal ECG When compared with ECG of 30-Apr-2025 07:43, No significant change Confirmed by JAIME PEREZ MD ([id number]) on 05/01/2025 8:02:00 AM Grant: JAIME PEREZ MD Heart * Event Display: Echocardiogram - Complete Authored Date: [id number] Transthoracic Echocardiography Report (TTE) Patient Demographics Patient Name PABLO BAUM Date of Study 04/30/2025 Corporate Gender Male Facility Race .[id number] Ethnicity Date of 1950 Height: 70.87 inches Age 74 year(s) Weight: 160.94 pounds Accession Number [id number] BSA: 1.92 m2 Room Number [id number] BMI: 22.53 kg/m2 Referring Not on Staff Referring Interpreting Renetta Sharma Physician Physician Pepe Ambrosio MD Semaphore Operator Joselin [facility] Laya Indications NSTEMI. Clinical History NSTEMI HLD Study Data Type of Study TTE procedure:Echo Complete-(Doppler, Colorflow) with Contrast. Procedure Information:Definity was administered by Assistant Child Care Teacher . Study Date04/30/2025 Start Time: 02:39 PM Study Location: [facility] [place] Adult Echo Study Status: Echo lab Patient Status: Routine Technical Quality: Fair due to body habitus. Blood Pressure:111/78 mmHg EKG: Within normal limits HR: 55 bpm Contrast Medium: Definity. Amount - 2 ml 2D Measurements LV Diastolic Dimension: 5.7 cm LV Systolic Dimension: 3.5 cm LV Septum Diastolic: 1 cm LV PW Diastolic: 0.7 cm AO Root Dimension: 3 cm LA Dimension: 4.1 cm LA ESV (BP):38.4 ml LVOT Stroke Volume: 66.47 ml LA ESV Index: 20 ml/m2 Stroke Volume Index34.62 ml/m2 LVOT: 2.1 cm Cardiac Index:1.91 l/min/m2 Ascending Aorta:3.4 cm Doppler Measurements AV Peak Velocity: 99.1 cm/s MV Peak E-Wave: 55.3 cm/s AV Peak Gradient: 3.93 mmHg MV Peak A-Wave: 35.8 cm/s MV E/A Ratio: 1.54 LVOT Peak Velocity: 85 cm/s MV P1/2t: 120 msec LVOT VTI19.2 cm MV Deceleration Time: 449 msec MV Area (PHT): 1.83 cm2 E' Septal Velocity: 6.74 cm/s PV Peak Velocity: 72.7 cm/s E' Lateral Velocity: 10.1 cm/s PV Peak Gradient: 2.11 mmHg E/Med E':8.708644 E/Lat E':5.393822 Cardiac Anatomy Left Ventricle/Interventricular Septum The LV systolic function is normal . Left ventricular wall thickness is normal. The LV systolic function is normal . Volumetric ejection fraction is calculated at 57 %. There is moderate hypokinesis of the mid to apical anteroseptal wall and mild hypokinesis of the LV apex. Grade I, mild diastolic dysfunction with impaired LV relaxation. Left Atrium/Interatrial Septum The left atrium is normal in size. Aortic Valve The aortic valve is trileaflet . There is no significant aortic regurgitation. There is no significant aortic stenosis. Mitral Valve The mitral valve opening is normal. There is trivial mitral regurgitation. Aorta The aortic root appears normal. Right Ventricle The right ventricle is normal in size and function. Right Atrium The right atrium is normal in size. Pulmonic Valve The pulmonic valve is functionally normal. Tricuspid Valve The tricuspid valve appears normal . There is trace tricuspid valve regurgitation. Pumonary Artery An accurate pulmonary artery pressure could not be obtained. Venous Structures The inferior vena cava appears normal. Pericardium/Extracardiac There is no pericardial effusion. Summary The LV systolic function is normal . Left ventricular wall thickness is normal. The LV systolic function is normal . Volumetric ejection fraction is calculated at 57 %. There is moderate hypokinesis of the mid to apical anteroseptal wall and mild hypokinesis of the LV apex. Grade I, mild diastolic dysfunction with impaired LV relaxation. Comparison No prior study available for comparison. Signature * Event Display: Echocardiogram - Complete Authored Date: [id number] Cardiology * Event Display: Cardiac Rhythm Strips Authored Date: * Event Display: Cardiac Rhythm Strips Authored Date: Hospital Progress note * Denae Rudolph RN: PERFORM, SIGN, VERIFY Event Display: Progress Note Hospital Authored Date: [id number] Patient: PABLO BAUM Age: 74 years Sex: Male : 1950 Associated Diagnoses: None Author: Denae Rudolph RN Findings Problem Related to Alteration in Cardiac Function (new) : Alteration in Cardiac Function/new 05/02/2025 9:36 EDT Alteration in Cardiac Status Related to Cardiac Procedure, Chest pain, Other: NSTEMI Goals & Outcomes, Cardiac Status Pt will resume/maintain adequate cardiac output, Pt will resume/maintain adequate hemodynamic status, Pt will resume/maintain adequate respiratory function, Pt will resume/maintain intact neuro function, Pt will maintain adequate GI/ function appropriate for pt, Pt/caregiver will state understanding of diagnosis, Pt/caregiver will state strategies to reduce risk factors Cardiac Interventions Implemented Assess/monitor cardiac status, Assess/monitor neuro status, Assess/monitor respiratory status, Assess for tolerance of IV infusions; verify rate & dose, Call/Report variances in ECG to provider, Document & Monitor O2 Sats; Administer O2 as ordered, Ensure adequate caloric intake, If no bowel movement in 3 days activate bowel regime, Monitor & document daily weight, Monitor anticoagulation values, Monitor ECG w/administration of antiarrhythmics (CO 13.420), Obtain 12 Lead ECG and CXR as ordered, Prep pt for treatments & procedures, Teach/encourage deep breath & cough exercises, Teach/encourage use of incentive spirometer, Team conversation regarding appropriate level of care, Turn & reposition Q2 hours per activity restrictions, Useadjunctive therapies per Standards of Practice Goals/Interventions, Cardiac Yes Cardiac, Problem Start 04/30/2025 13:51 Reviewed Plan with, Cardiac Status Patient Patient Progression, Cardiac Status Patient progressing according to plan . Nursing Data Cardiac Data. : Cardiac Data. 05/02/2025 9:33 EDT Nail Bed Color, Fingers [place] Nail Bed Color, Toes [place] Skin Temperature Upper Extremities Warm Skin Temperature Lower Extremities Warm Heart Rhythm Regular Cardiac Rhythm Normal sinus rhythm Capillary Refill < 3 seconds clinical research monitor Yes Cardiovascular WNL except . Evaluation (Pt awake and alert ox3. Pt denies c/p or sob. Monitor sinus. R radial site stable. Lungs clr. Pt oob steady gait noted. VSS will continue to monitor and report any changes to MD.) * Sammie NGO, Adilene: PERFORM, SIGN, VERIFY Event Display: Progress Note Hospital Authored Date: [id number] Patient: PABLO BAUM Age: 74 years Sex: Male : 1950 Associated Diagnoses: None Author: Sammie RN, Adilene Findings Problem Related to Alteration in Cardiac Function (new) : Alteration in Cardiac Function/new 05/01/2025 21:00 EDT Alteration in Cardiac Status Related to Cardiac Procedure, Chest pain, Other: NSTEMI Goals & Outcomes, Cardiac Status Pt will resume/maintain adequate cardiac output, Pt will resume/maintain adequate hemodynamic status, Pt will resume/maintain adequate respiratory function, Pt will resume/maintain intact neuro function, Pt will maintain adequate GI/ function appropriate for pt, Pt/caregiver will state understanding of diagnosis, Pt/caregiver will state strategies to reduce risk factors Cardiac Interventions Implemented Assess/monitor cardiac status, Assess/monitor neuro status, Assess/monitor respiratory status, Assess baseline peripheral pulses, Assess for post procedural discomfort, Pre/post cath guideline BH Goals/Interventions, Cardiac Yes Cardiac, Problem Start 04/30/2025 13:51 Reviewed Plan with, Cardiac Status Patient Patient Progression, Cardiac Status Patient progressing according to plan . Nursing Data Activity Data : Activity Data 05/01/2025 21:00 EDT Baseline Functional Status Independent Activity Status ADL Up ad ishaan Activity Assistance Independent . Cardiac Data. 05/01/2025 21:55 EDT Cardiovascular Symptoms None Heart Rhythm Regular Pacemaker No Cardiac Rhythm Sinus bradycardia Capillary Refill < 3 seconds Radial Pulse, Left Normal Radial Pulse, Right Normal Dorsalis Pedis Pulse, Left Normal Dorsalis Pedis Pulse, Right Normal Edema None clinical research monitor Yes Cardiovascular WNL except . Vital Signs : VITAL SIGNS SECTION 05/02/2025 2:21 EDT Temperature 98.1 DegF Temperature Route Oral Pulse Rate 52 bpm L Respiratory Rate 18 br/min Systolic Blood Pressure 114 mm Hg Diastolic Blood Pressure 66 mm Hg Blood pressure sites Arm, left Mean Arterial Pressure 82 mm Hg Pulse Pressure 48 mm Hg Oxygen Saturation 96 % Mode of Delivery (Oxygen) Room air . Evaluation S/P cardiac cath 05/01 pt denies CP,SOB,dizziness or lightheadedness. He is A&OX4, SB on tele, clear lungs on RA.Vss.palpable pulses with no edema noted. Right radial site has TR band successfullytaken off, no oozing, bleeding or Hematoma noted. Pt is able to make his needs known using his callbell. Nursing care continues.. * Yassine DONNELLY, Claudio Dejesus: PERFORM Event Display: Progress Note Hospital Authored Date: [id number] Patient: ??PABLO BAUM ? Age:??74 Years?Sex:??Male?:??1950?? Subjective Patient was seen and examined at bedside; in no acute distress. Resting comfortably, denies chest pain or sob. Elevated trops which later downtrended. Cath in afternoon. Review of Systems All other ROS negative?? Objective Measurements?? Height: 180 cm (05/01/25) Weight: 73 kg (04/30/25) Dry Weight: 73 kg (04/30/25) Body Mass Index: 22.53 kg/m2 (04/30/25) ? Vital Signs?? Temperature: 97.8 DegF (05/01/25 16:19:00) Temperature Route: Oral (05/01/25 16:19:00) Pulse Rate:??53 bpm??Low (05/01/25 16:19:00) Heart Rate Monitored:??40 bpm??Low (05/01/25 15:45:52) Respiratory Rate: 18 br/min (05/01/25 16:19:00) Systolic Blood Pressure:??139 mm Hg??High (05/01/25 16:19:00) Diastolic Blood Pressure: 79 mm Hg (05/01/25 16:19:00) Blood pressure sites: Arm, left (05/01/25 16:19:00) Mean Arterial Pressure: 81 mm Hg (05/01/25 03:21:00) Pulse Pressure: 60 mm Hg (05/01/25 16:19:00) Oxygen Saturation: 100 % (05/01/25 16:19:00) Mode of Delivery (Oxygen): Room air (05/01/25 16:19:00) Early Warning Score: 2 (05/01/25 16:21:05) ? Intake/Output? 04/30 11:58 05/01 07:00 04/30 07:00 04/29 07:00 04/28 07:00 ?? 05/01 17:00 05/01 17:00 05/01 06:59 04/30 06:59 04/29 06:59 Intake ?443.8 ?302.2 ?141.6 ?0 ?0 Output ?0 ?0 ?0 ?0 ?0 Net Total ?443.8 ?302.2 ?141.6 ?0 ?0 ? Urine Count ?2 ?1 ?1 ?0 ?0 ? Physical Exam ?General: Lying in bed. Afebrile. NAD. ?Eye: Normal conjunctiva ?HEENT: Normocephalic ?Neck: Supple ?Resp: Nonlabored respirations, CTA, BS+, Equal B/L ?CVS: Normal rate, RRR, No R/M/G, no edema ?GI: Soft, ND, NT. ?Integumentary: Warm, Dry ?Extremities: _ Inpatient Medications Medications (16) Active SCHEDULED: (6) Aspirin 81 mg EC Tablet (aspirin 81 mg oral delayed release tablet) ??81 mg, By Mouth, Daily Atorvastatin 40 mg Tablet (atorvastatin 40 mg oral tablet) ??40 mg, By Mouth, Daily at bedtime Finasteride 5 mg Tablet (finasteride 5 mg oral tablet) ??5 mg, By Mouth, Daily at bedtime NaCl 0.9% Flush 3ml (NaCL 0.9% Flush) ??3 mL, IV Push, Every 8 hours NaCl 0.9% Flush 3ml (NaCL 0.9% Flush) ??3 mL, IV Push, Every 8 hours Ticagrelor 90 mg Tablet (Ticagrelor Tablet) ??90 mg 1 tablet, By Mouth, 2 times a day CONTINUOUS: (2) NaCL 0.9% (1000 mL) Cont IV 219 mL (NaCL 0.9% Bolus 219 mL) ??219 mL, IV Infusion Sodium Chloride 0.9% 1000 mL [5 mL/kg/hr] (Sodium Chloride 0.9% Normalized 1000 mL [5 mL/kg/hr]) ??1,000 mL, IV Infusion, 365 mL/hr PRN: (8) Acetaminophen 325 mg Tablet (Acetaminophen Tablet) ??650 mg, By Mouth, Every 4 hours Heparin 5000 units/mL Inj (1 mL) (Heparin Inj) ??4,500 units 0.9 mL, IV Push, Every 6 hours Heparin 5000 units/mL Inj (1 mL) (Heparin Inj) ??2,000 units 0.4 mL, IV Push, Every 6 hours Melatonin 3 mg Tablet (Melatonin Tablet) ??3 mg, By Mouth, Daily at bedtime NaCl 0.9% Flush 3ml (NaCL 0.9% Flush) ??3 mL, IV Push, Every 8 hours NaCl 0.9% Flush 3ml (NaCL 0.9% Flush) ??3 mL, IV Push, Every 8 hours Polyethylene Glycol 17 Gm Powder (MiraLax Powder) ??17 Gm 1 pack/packet, By Mouth, Daily Senna Tablet ??8.6 mg 1 tablet, By Mouth, 2 times a day ? Results Recent Labs BLOOD BANK Blood Type A Negative ()?? 04/30/2025 14:06 Antibody Screen Negative ()?? 04/30/2025 14:06 ?? BLOOD COUNT & DIFF WBC 7.9 k/mm3 ()?? 05/01/2025 06:04 RBC 5.09 m/mm3 ()?? 05/01/2025 06:04 Hgb 15.6 Gm/dL ()?? 05/01/2025 06:04 Hct 47.3 % ()?? 05/01/2025 06:04 MCV 92.9 femtoliters ()?? 05/01/2025 06:04 MCH 30.6 pg ()?? 05/01/2025 06:04 MCHC 33.0 Gm/dL ()?? 05/01/2025 06:04 Platelet Count 245 k/mm3 ()?? 05/01/2025 06:04 RDW-SD 42.8 femtoliters ()?? 05/01/2025 06:04 MPV 10.9 femtoliters ()?? 05/01/2025 06:04 Nucleated RBC (Automated) 0.0 #/100 WBC'S ()?? 05/01/2025 06:04 Abs. NRBC 0.0 k/mm3 ()?? 05/01/2025 06:04 Abs. Neut 5.2 k/mm3 ()?? 05/01/2025 06:04 Abs. Lymph 1.9 k/mm3 ()?? 05/01/2025 06:04 Abs. Adams 0.7 k/mm3 ()?? 05/01/2025 06:04 Abs. Eo 0.1 k/mm3 ()?? 05/01/2025 06:04 Abs. Baso 0.1 k/mm3 ()?? 05/01/2025 06:04 Neut % 65.4 % ()?? 05/01/2025 06:04 Lymph % 23.7 % ()?? 05/01/2025 06:04 Adams % 8.6 % ()?? 05/01/2025 06:04 Eos % 1.1 % ()?? 05/01/2025 06:04 Baso % 0.8 % ()?? 05/01/2025 06:04 Imm Gran 0.4 % ()?? 05/01/2025 06:04 Abs. Imm Gran 0.0 k/mm3 ()?? 05/01/2025 06:04 ?? CARDIAC High Sensitivity Troponin (HSTnT) 433 ng/L (Critical)?? 05/01/2025 12:09 ?? CHEM GENERAL Sodium 138 mmol/L ()?? 05/01/2025 06:04 Potassium 4.4 mmol/L ()?? 05/01/2025 06:04 Chloride 104 mmol/L ()?? 05/01/2025 06:04 Bicarbonate Level 25 mmol/L ()?? 05/01/2025 06:04 Anion Gap 9 mmol/L ()?? 05/01/2025 06:04 Glucose Level 85 mg/dL ()?? 05/01/2025 06:04 Hemoglobin A1C (Monitoring) 5.8 % (High)?? 05/01/2025 06:04 BUN 17 mg/dL ()?? 05/01/2025 06:04 Creatinine-Blood 1.02 mg/dL ()?? 05/01/2025 06:04 Estimated GFR Creatinine 78 ML/MIN/1.73 M2 ()?? 05/01/2025 06:04 Calcium 9.5 mg/dL ()?? 05/01/2025 06:04 Phosphorus 2.9 mg/dL ()?? 05/01/2025 06:04 Magnesium 2.1 mg/dL ()?? 05/01/2025 06:04 Protein, Total 6.9 Gm/dL ()?? 05/01/2025 06:04 Albumin 4.0 Gm/dL ()?? 05/01/2025 06:04 AG Ratio 1.4 ()?? 05/01/2025 06:04 Alkaline Phosphatase 78 units/L ()?? 05/01/2025 06:04 AST (SGOT) 65 units/L (High)?? 05/01/2025 06:04 ALT (SGPT) 27 units/L ()?? 05/01/2025 06:04 Bilirubin, Total 1.2 mg/dL ()?? 05/01/2025 06:04 ?? COAG APTT 48.7 seconds (High)?? 05/01/2025 12:09 ?? ENDOCRINE/TUMOR MARKER TSH 2.09 uIU/mL ()?? 05/01/2025 06:04 ?? HEME OTHER Hold Blue Top SPECIMEN DISCARDED AFTER 4 HOURS. ()?? 04/30/2025 07:55 ?? URINE OTHER Est Creatinine Clearance 66.60 mL/min ()?? 05/01/2025 07:13 ? Abnormal Labs ?? BLOOD COUNT & DIFF Abs. Imm Gran?0.0 k/mm3 ()?05/01/2025 06:04 Abs. NRBC?0.0 k/mm3 ()?05/01/2025 06:04 Imm Gran?0.4 % ()?05/01/2025 06:04 Nucleated RBC (Automated)?0.0 #/100 WBC'S ()?05/01/2025 06:04 RDW-SD?42.8 femtoliters ()?05/01/2025 06:04 ?? CARDIAC High Sensitivity Troponin (HSTnT)?433 ng/L (Critical)?05/01/2025 12:09 ?? CHEM GENERAL AG Ratio?1.4 ()?05/01/2025 06:04 AST (SGOT)?65 units/L (High)?05/01/2025 06:04 Estimated GFR Creatinine?78 ML/MIN/1.73 M2 ()?05/01/2025 06:04 Hemoglobin A1C (Monitoring)?5.8 % (High)?05/01/2025 06:04 ?? COAG APTT?48.7 seconds (High)?05/01/2025 12:09 ?? Note: Critical results are displayed in red. ? Urinalysis Est Creatinine Clearance: 66.6 mL/min (07:13) ? Assessment/Plan ?Diagnoses NSTEMI (non-ST elevated myocardial infarction) ??(I21.4) 1. ??Atherosclerosis of right carotid artery ??(I65.21) 2. ??Hyperlipidemia ??(E78.5) 3. ??Benign prostatic hyperplasia ??(N40.0) ?? Assessment:??This is a 74-year-old male with past medical history of bilateral carotid stenosis 50%narrowing, BPH, herpes zoster, HLD, nocturnal leg cramps, PVD who presents to the emergency department with chest pain that occurred during workout. Presentation and increased troponin c/w NSTEMI. Consulted cards. On Heparin GGT. s/p LHC Mid LAD 99%stenosis s/p pci with REJI 05/01 ?? NSTEMI (non-ST elevated myocardial infarction) (I21.4) ?Associated with??Hyperlipidemia (E78.5) ? Non-ST elevation myocardial infarction Presented with CP EKG did not reveal ST elevations, NSR. Troponin peaked at 464?? Loaded with??Aspirin??and started on heparin drip in the ED. Current symptoms and exam: Asymptomatic ECHO with EF 57 %. There is moderate hypokinesis of the mid to apical??anteroseptal wall and mild hypokinesis of the LV apex. Grade I, mild diastolic dysfunction with impaired LV relaxation. s/p LHC Mid LAD 99%stenosis s/p pci with REJI 7/25? Plan: ??? Dc heparin drip ?Continue aspirin 81mg daily ??? Loaded with 180mg Ticagrelor; 90mg BID ordered starting tonight for 1 year post-PCI (through 05/01/26) ??? Continue atorvastatin?? 40 mg ??? Not on metoprolol?? due to bradycardia, will defer to cardiology ? Cardiology following ?? Atherosclerosis of right carotid artery (I65.21):?? Asa 81mg, atorvastatin to 40 mg daily Est. w/ [facility] vasc??surg ?? Benign prostatic hyperplasia (N40.0):?? Con't??home??finasteride ?? VTE Prophylaxis:??Ambulatory ?VTE Prophylaxis Assessment:??Excluded from VTE prophylaxis measure ?? Discharge Planning:??Home ?? Ongoing Medical Necessity:??NSTEMI mgmt ?? Code Status:??FULL confirmed at bedside ?Order Code Status:??Code Status Ordered ? Consult note * Maged Phoenix MD: PERFORM, MODIFY, MODIFY Event Display: Consultation Note Authored Date: [id number] Patient: ??PABLO BAUM ? Age:??74 Years?Sex:??Male?:??1950?? History of Present Illness/Interval History [facility] Cardiology Consult Note Consult Reason:??NSTEMI Outpatient Gas Operator:??None Requesting Provider: Ng Consulting Physician: Pack ?? 74-year-old male history??HLD,??bilateral carotid stenosis??being medically managed/surveilled??by vascular??presents for chest pain. ?? He was at??an aerobic exercise??class today??when he started to feel chest pain described as??burning/tightness??centrally and??across the chest??bilaterally.?? He described the chest pain as the feeling he would feel??after sprinting??when??your lungs start burning.?? He had never had this sensation before there was no radiation as well??and it was moderate in intensity.?? He continued to exercise through the pain but dialed down his intensity??through the class.?? He tried resting afterwards??but did not resolve, drove home??and then went to the ED. ??Symptoms resolved??1 hour after??rest??with 2 hours total pain.?? There was no associated dyspnea. ?? The day prior to this [04/29]??was doing a cycling class??where he notes upon questioning he was feeling??more short of breath than typical.?? Describes it as feeling like an off day??during exercise??but make special note that he typically is very consistent and does not have off days. ??No chest pain during this??event and symptoms??were mild. ??It did not stop him from exercising. ?? He is typically very active??does an exercise class every day of the workweek??either cycling or??calisthenics.?? His family history is pertinent for a brother with an AZ??and PCI??in his late 50s.??He is a non-smoker, no alcohol/marijuana/vaping/drug use. ?? In his background, follows with vascular surgery here at [facility]??for??bilateral carotid artery stenosis which has been??surveilled annually. ??It was found incidentally??on a physical exam by his primary care who noted carotid bruit. ?? His preliminary workup included an EKG??that was normal sinus rhythm.?? He had??an uptrending troponin 20-120-244.?? He was admitted,??given aspirin 324 mg and started on a heparin drip.?? He also??had an echocardiogram performed with preserved EF but notable for an anterior wall motion??abnormality. ?? Cardiac Home Meds:??Aspirin, atorvastatin 40 ?? Data Reviewed: ???Vitals:??Hemodynamically stable, room air,??normotensive mostly, afebrile ??? Labs:??Creatinine 1.04,??HST??20-120-244 ??? Echo:??EF 56%,??moderate hypokinesis mid to apical anteroseptal wall??and mild hypokinesis of the LV apex ???EKG:??NSR Review of Systems Constitutional, Eye, Skin, Head/Neck, ENMT, Respiratory, Cardiovascular, Gastrointestinal, Endocrine, Musculoskeletal, Neurologic, Psych reviewed and negative except as noted in HPI Physical Exam Vitals & Measurements T:??97.7?F?? HR:??53??(Peripheral)?? RR:??18?? BP:??132/80?? SpO2:??100%?? HT:??180??cm?? WT:??73.0??kg?? BMI:??22.53?? Weight lb/oz: 160 lb 15 oz General Appearance: The patient is in NAD. Cardiovascular: RRR S1 and S2 heard with no M/R/G. No JVD. Respiratory:?Breath sounds clear to auscultation bilaterally. No wheezing. Good air movement throughout both lungs. MS:?No edema or erythema in the lower extremities. No wounds seen on the feet. Peripheral sensation intact.?? Neuro:?No slurred speech.?Patient seen moving their upper and lower extremities independently. Psych: Alert and oriented x3. Appropriate and pleasant. CAM negative. Intake and Output Today's Intake Total? 35?? Today's Balance? 35?? Clinical Range's Intake Total? 35?? Clinical Range's Balance ? 35?? Assessment/Plan 1.??Atherosclerosis of right carotid artery 2.??Hyperlipidemia 3.??Benign prostatic hyperplasia NSTEMI (non-ST elevated myocardial infarction) (Provisional) Orders: Sodium Chloride, 3 mL, Injection, IV Push, Every 8 hours, Routine, 04/30/25 18:00:00 EDT Sodium Chloride, 3 mL, Injection, IV Push, Every 8 hours, PRN for Line/Tube Patency, Routine, 04/30/25 17:48:00 EDT Sodium Chloride 0.9% 219 mL, 219 mL, Infusion, IV Infusion, freight caller to Masonry Installer, Infuse Bolus over 60 minutes, Infuse at 3 mL/kg/hr to be administered solar project coordination specialist to procedure., Routine, 04/30/25 17:18:00 EDT Cardiac Cath Prep Instructions Cardiac Cath Procedure IV Line PRN Angio MD to RN Misc Instruction to RN Misc Instruction MD to RN Misc Instruction Monitor O2 Sat Wall Taper to Oxygen via Cannula Pre Procedure Nursing Instructions Pre Procedure Nursing Instructions Pre Procedure Nursing Instructions Pre Procedure Nursing Instructions Prep Instructions Vital Signs 74-year-old male history??HLD,??bilateral carotid stenosis??presents for??chest pain with concern for??anterior NSTEMI. ?? Patient is functionally very active at baseline. ??Risk factors include??age,??family history??and??known vascular disease??including??carotid artery stenosis/HLD.?? His story is??typical for??AZ??and was found to have??consistent findings??on evaluation including??rising troponin??and??an echocardiogram??thankfully with preserved EF but notable for an anterior??wall motion abnormality. ??Findings are concerning for an anterior AZ, fortunately,??anticipate culprit will be distal LAD as??wall motion involvement seems to be??the mid??to apical??anteroseptal wall, a small territory.??One aspect of the story I question is whether his??AZ??occurred??today this morning during his??calisthenic exercise class??or whether occurred the day before when he noted??abnormal??dyspnea during??his cyclingclass. ??I favor??thinking that??it occurred today given??his largely reassuring echo. ??We will plan for left heart catheterization??05/01 please make n.p.o. midnight.?Agree with aspirin/statin??and heparin drip.?After??catheterization??anticipate starting metoprolol??however has been??mildlybradycardic??and will need further monitoring before starting.?? Please see below for further Recommendations. ?? #??NSTEMI ? Recommendations: ???Trend troponins to??peak, telemetry ???Please get following labs:??Lipids, A1c,??TSH ???Continue ASA 81??daily ???Increase??atorvastatin to??80mg. ??Would hold??P2 Y12 inhibitor??as likelihood of triple-vessel disease is high ???Continue with heparin GTT, n.p.o. midnight for LHC ???Start??metoprolol succinate??25 mg after LHC??if heart rate is appropriate ???If A1c??is elevated and in diabetic range would start SGLT2 inhibitor after??LHC ???If chest pain recurs??would give sublingual nitroglycerin??and repeat EKG ???Cardiac rehab ? Findings and plan of care was discussed and agreed on with Dr. Arambula ?? Maged Phoenix MD Cardiovascular Disease Fellow, PGY-5 [facility] [place] Connect / Pager: [phone] Allergies NKA Home Medications Aspirin: 81 mg = 1 tablet, By Mouth, Daily Atorvastatin: 1 tablet, By Mouth, Daily Cholecalciferol: 25 mcg = 1 tablet, By Mouth, Daily Chondroitin-Glucosamine: By Mouth Finasteride Multivitamin With Minerals: By Mouth, Daily Hospital Medications Medications (15) Active SCHEDULED: (5) Aspirin 81 mg EC Tablet (aspirin 81 mg oral delayed release tablet) ??81 mg, By Mouth, Daily Atorvastatin 40 mg Tablet (atorvastatin 40 mg oral tablet) ??40 mg, By Mouth, Daily at bedtime Finasteride 5 mg Tablet (finasteride 5 mg oral tablet) ??5 mg, By Mouth, Daily at bedtime NaCl 0.9% Flush 3ml (NaCL 0.9% Flush) ??3 mL, IV Push, Every 8 hours NaCl 0.9% Flush 3ml (NaCL 0.9% Flush) ??3 mL, IV Push, Every 8 hours CONTINUOUS: (2) Heparin 25,000 units / 250 mL D5W premix 25,000 units [12 units/kg/hr] + D5%W Premixed IV 250 mL (Heparin 25,000 units in 250 mL Premix 25,000 units [12 units/kg/hr] + D5%W Premixed IV 250 mL) ??250 mL, IV Infusion, 8.76 mL/hr NaCL 0.9% (1000 mL) Cont IV 219 mL (NaCL 0.9% Bolus 219 mL) ??219 mL, IV Infusion PRN: (8) Acetaminophen 325 mg Tablet (Acetaminophen Tablet) ??650 mg, By Mouth, Every 4 hours Heparin 5000 units/mL Inj (1 mL) (Heparin Inj) ??4,500 units 0.9 mL, IV Push, Every 6 hours Heparin 5000 units/mL Inj (1 mL) (Heparin Inj) ??2,000 units 0.4 mL, IV Push, Every 6 hours Melatonin 3 mg Tablet (Melatonin Tablet) ??3 mg, By Mouth, Daily at bedtime NaCl 0.9% Flush 3ml (NaCL 0.9% Flush) ??3 mL, IV Push, Every 8 hours NaCl 0.9% Flush 3ml (NaCL 0.9% Flush) ??3 mL, IV Push, Every 8 hours Polyethylene Glycol 17 Gm Powder (MiraLax Powder) ??17 Gm 1 pack/packet, By Mouth, Daily Senna Tablet ??8.6 mg 1 tablet, By Mouth, 2 times a day Lab Results Cardiology Labs Blood Count & Diff General Chemistry?? WBC: 7.1 k/mm3 (04/30/25) Sodium: 137 mmol/L (04/30/25) RBC: 4.78 m/mm3 (04/30/25) Potassium: 4.6 mmol/L (04/30/25) Hgb: 14.8 Gm/dL (04/30/25) Chloride: 105 mmol/L (04/30/25) Hct: 44.9 % (04/30/25) Bicarbonate Level: 22 mmol/L (04/30/25) MCV: 93.9 femtoliters (04/30/25) Anion Gap: 10 mmol/L (04/30/25) Platelet Count: 229 k/mm3 (04/30/25) Glucose Level: 92 mg/dL (04/30/25) ?? BUN: 21 mg/dL (04/30/25) ?? Creatinine-Blood: 1.04 mg/dL (04/30/25) ?? Estimated GFR Creatinine: 76 ML/MIN/1.73 M2 (04/30/25) ?? Calcium: 9.9 mg/dL (04/30/25) Diagnostic Impression ECG ECG 12-Lead ?? 11:33:11 Please click on pdf link to open report ?? Signed By: Juan Akhtar MD ?? ECG 12-Lead ?? 11:33:11 Ventricular Rate: 54 BPM Atrial Rate: 54 BPM P-R Interval: 142 ms QRS Duration: 84 ms Q-T Interval: 438 ms QTC Calculation(Bazett): 415 ms P [place]: 65 degrees R [place]: -35 degrees T [place]: 66 degrees Sinus bradycardia Left axis deviation Abnormal ECG When compared with ECG of 30-Apr-2025 10:18, No significant change Confirmed ?? Signed By: Juan Akhtar MD Echo Echocardiogram - Complete ?? 14:39:17 Summary The LV systolic function is normal . Left ventricular wall thickness is normal. The LV systolic function is normal . Volumetric ejection fraction is calculated at 57 %. There is moderate hypokinesis of the mid to apical anteroseptal wall and mild hypokinesis of the LV apex. Grade I, mild diastolic dysfunction with impaired LV relaxation. ?? Comparison No prior study available for comparison. ?? Signature ?? Signed By: Zachary Jackson DO Studies VL Carotid Duplex Scan Bilat ?? 11:43:38 Summary: Right Side: 1-49% stenosis in the Internal Carotid Artery, unable to obtain previous velocity of 187.8/ 22.9 cm/s despite multiple attempts. Antegrade flow in the Vertebral Artery. Multiphasic flow is seen in the Subclavian Artery. ?? Left Side: 1-49% stenosis in the Internal Carotid Artery, previously 119/ 18.6 cm/s. Antegrade flow in the Vertebral Artery. Multiphasic flow is seen in the Subclavian Artery. ?? Comparison is made to the previous ultrasound study dated 06/12/23. ? Signed By: Catrachito Pierre MD Problem List/Past Medical History Ongoing Atherosclerosis of right carotid artery Benign prostatic hyperplasia Herpes zoster Hyperlipidemia Nocturnal leg cramps Procedure/Surgical History Arthroscopy of R knee TURP - Transurethral resection of prostate Social History Alcohol Use: Current. Frequency: 1-2 times per month. Type: Wine, cider. Electronic Cigarette/Vaping Electronic Cigarette Use: Never. Employment/School Status: Retired. Other: IT person. Home/Environment Living situation: Home/Independent. Lives with: Spouse. Nutrition/Health Diet: Regular. Substance Abuse Use: Never. Tobacco Use: Never (less than 100 in lifetime). Family History Father: Cancer Brother: Heart attack Mat. Grandfather: Stroke Pat. Grandmother: Heart attack Pat. Grandfather: Cancer * Michael Arambula MD R: PERFORM Event Display: Consultation Note Authored Date: Attending Attestation:??I have seen and evaluated this patient.?I have discussed the case and its management with the fellow/advanced practitioner and agree with the findings and plan as documented in the their note. Patient Care team information Care Team Personnel Name: Vinny Fallon DO Position: Reference Physician Member Role: PCP [address]: [address] [place] [address], [address] Telecom: Care Team Related Persons Name: DARÍO BAUM Insurance Providers Guarantor name: EDEL Health Plan Information #: 1 Payer: [facility] Payer Identifier: EDEL Member Number: [id number] Group Number: [id number] Subscriber Identifier: [id number] Relationship to Subscriber: self Coverage Type: EDEL Coverage Verification Date: EDEL Telecom: EDEL Address:
--- OUTSIDE RECORDS SUMMARY | 2025-05-04 06:18 | XMS_ITS | Encounter Summary ---
Author Name [facility] [place] [facility] Address [address] [place] [id number] Care Team Providers Care Zoogler Name Role Phone ELKE MAYES Primary Care [...] Name Patient's Relationship to Policy Kraft KALEN MARTINEZ OF CT (BLUECARD) MEDICARE SUPPLEMEN BG PSUED O MEDEX BRONZ E Jun 08, 2016 [id number] AMY BAUM [place] MEDEX BRONZ E Jun 08, 2016 [id number] PABLO BAUM JR [place] SUPPLEMEN [place] MEDEX BRONZ E Jun 08, 2016 [id number] [phone] PABLO BAUM JR PATIENT MEDICARE (WNR) MEDICARE (M) PART A Jun 08, 2016 PART A [id number] AMY BAUM PATIENT MEDICARE (WNR) MEDICARE (M) PART B Jun 08, 2016 PART B [id number] AMY BAUM PATIENT MEDICARE (WNR) MEDICARE (M) PART A Jun 08, 2016 PART A [id number] AMY BAUM HN PATIENT MEDICARE (WNR) MEDICARE (M) PART B Jun 08, 2016 PART B [id number] AMY BAUM HN PATIENT MEDICARE (WNR) MEDICARE (M) PART A Jun 08, 2016 PART A [id number] AMY BAUM PATIENT MEDICARE (WNR) MEDICARE (M) PART B Jun 08, 2016 PART B [id number] AMY BAUM PATIENT Selected Encounter This section includes the information on record at [place] for the Encounter. Date/Time Encounter Type Encounter Description Reason Pro vider Source May 04, 2025 10:18 AM Outpatient Encounter [facility]ITY CARE CONSULT I[facility] Encounter Template Text not used by [facility] Plan of Treatment: Future Appointments (+ 6 months) and Future Tests (+/- 45 days) The Plan of Treatment section includes future care activities for the patient from all [place] treatmentfacilities. This section includes future appointments and future orders which are active, pending or scheduled. Future Appointments This section includes appointments that were scheduled to occur 6 months from the date of the Encounter, up to a maximum of 20 appointments. The data comes from all [place] treatment facilities. Appointment Date/Time Appointment Type Appointme nt Facility Name Aug 17, 2025 01:00 PM AMBULATORY - MEDICINE [facility] Social History: Smoking Status (Most current) and Tobacco Use (All prior to encounter date) This section includes the most current, and the historical, smoking and tobacco- related health factors from the [facility] facility where the Encounter took place. Current Smoking Status This section includes the most current smoking, or tobacco-related health factor, from the [place] facility where the Encounter took place. Date/Time Current Smoking Status Comment Facil [facility] Oct 03, 2023 02:05 PM [place]-TOBAC[place] NEVER USED [place] [facility] Encounter Notes: All associated encounter notes This section contains the clinical notes associated to the Encounter. Date/Time Encounter Note(s) Provider Source Apr 30, 2025 07:40 AM NONVA NOTE: LOCAL TITLE: [facility] SELF PRESENTING CARE COORD PLAN STANDARD TITLE: NONVA NOTE DATE OF NOTE: APR 30, 2025@07:40 ENTRY DATE: MAY 04, 2025@10:18:55 AUTHOR: MIESHA OLIVIER EXP COSIGNER: URGENCY: STATUS: COMPLETED Emergency Notification Intake Date Presenting to the Facility: Apr Method of Contact: Notified from ECR worklist Notification ID: [id number] [facility] Referral #: [id number] [facility] Name: Hospital: [facility] Address: City: [place] State: [place] Zip Code: Phone : Community Facility Point of Contact: Name: Yun Phone: Chief complaint: I21.4 Primary Diagnosis: Disposition Admitted Route of Admission: ER Date of Admission: Apr Admitting Diagnosis: I21.4 Community Care Provider: Confirm Level of Care: /joceline/ MIESHA SAM Signed: 05/04/2025 10:20 Receipt Acknowledged By: 05/04/2025 11:45 /es/ JONO MOTA REGISTERED NURSE * AWAITING SIGNATURE * TERRI MATTHEW 05/04/2025 11:23 /es/ Elke Mayes MD INTERNAL MEDICINE and RHEUMATOLOGY * AWAITING SIGNATURE * OMI WITT DAWN MARIE CHAMPLIN
--- NOTE | 2025-05-06 07:21 | MHC.OFFVIS ---
Intake Visit Reasons: 1y/PSA/PVR(set) Intake Note: Patient presents for 1 YR follow up for elevated psa PSA:1.12 Urology Medications: Finasteride,tadalafil Blood Thinner:aspirin Mult Au Matic Operator Required: No Accompanied by: Self / Same As Patient Allergies No Known Allergies (No Known Allergies*) Allergy (Verified 05/06/25 08:12) Medication List - Last Reconciled 05/06/25 by EVAN Bhagat- aspirin 81 mg PO DAILY atorvastatin (Lipitor) 40 mg PO DAILY finasteride 5 mg PO DAILY 90 days multivitamin 1 tab PO DAILY tadalafil 10 mg PO ONCE PRN 30 days ticagrelor 90 mg PO BID HPI Comments Details: Elias is a pleasant 74 year old male patient of Dr. Varghese. He has a past medical history of hyperlipidemia and sleep apnea. He is being followed up on today via telehealth. In discussion with the patient today he reports having recently been hospitalized at [facility] for a myocardial infarction in underwent stent placement this past Wednesday 05/02. He reports he is home and recovering well. He denies having had any bothersome urinary issues or concerns. He reports compliance with finasteride as prescribed. When asked he currently denies any bothersome urinary issues or concerns. He does also discussed having been diagnosed with sleep apnea and has been prescribed a CPAP over the last 6 months that he has been utilizing. When asked he denies urinary urgency, urinary frequency, incontinence, hematuria, dysuria, foul smelling urine, changes to urinary stream, flank pain, fever, and or chills. He is happy with his current voiding parameters. He does report noting episodes of nocturia 1 time per night however does not find this bothersome. Recent PSA results reviewed with the patient today as noted and trended below. He otherwise offers no other issues or concerns at this time. Lower Urinary Tract Symptoms Progressive weakness of stream PSA - 03/27 3.1, 03/28 4.6, 08/28 2.5, 09/28 0.9, 03/30 0.9, 10/31 0.9, 04/30 0.7, 05/01 1.1 Prior variable PSA with prostate biopsy 2004 Current meds - three times per day- finasteride Prior investigations for microscopic hematuria found to have slight inflamed area on posterior bladder TANISHA large Prior therapy tamsulosin and finasteride Therapeutic plan - finasteride Erectile dysfunction Had visual side effects with Viagra PFSH Medical History Nocturia associated with benign prostatic hyperplasia Benign prostatic hyperplasia with nocturia Surgical History Hx of transurethral resection of prostate Hx of cystoscopy H/O colonoscopy Social History Alcohol intake: current Alcohol intake frequency: 0-2 drinks per day Patient Tobacco Use Status: Never used Tobacco Review of Systems Const All systems reviewed & are unremarkable except as noted in HPI and below Eyes Reports no additional complaints ENT Reports no additional complaints Card Reports no additional complaints Resp Reports no additional complaints GI Reports no additional complaints Reports as per HPI Musc Reports no additional complaints Neuro Reports no additional complaints Psych Reports no additional complaints Endo Reports no additional complaints Cash/Lymph Reports no additional complaints Aller/Immun Reports no additional complaints Physical Exam Const General: cooperative Orientation/consciousness: patient oriented x3 Resp Effort & Inspection: able to speak in complete sentences Neuro General: patient oriented x3 Psych Speech and movement: Clear speech present Thought process: Normal thought process present Insight: Fair insight present (Psych) Judgement: Fair judgement present (Psych) Telehealth Telehealth Telehealth Platform: [facility] Location of provider rendering services: practice address Location of patient: address on file Patient Identification confirmed using: Name, : Yes Telehealth method: voice only Patient verbally consented to treatment: Yes Patient verbally consented to billing insurance company: Yes Patient informed of any privacy concerns related to visit: Yes Minutes spent on Phone/Video with Pt.: 20 Assessment & Plan Assessment & Plan (1) Benign prostatic hyperplasia with nocturia: Comment: 2006 TURP Code(s): N40.1 - Benign prostatic hyperplasia with lower urinary tract symptoms; R35.1 - Nocturia Category: Medical (2) Nocturia associated with benign prostatic hyperplasia: Code(s): N40.1 - Benign prostatic hyperplasia with lower urinary tract symptoms; R35.1 - Nocturia Category: Medical (3) Elevated PSA: Code(s): R97.20 - Elevated prostate specific antigen [PSA] Category: Medical (4) Hx of transurethral resection of prostate: Comment: 2006 Code(s): Z98.890 - Other specified postprocedural states; Z90.79 - Acquired absence of other genital organ(s) Category: Surgical Plan Recent PSA results reviewed with the patient today; as noted above. He currently denies any bothersome urinary issues or concerns. He reports be happy with current voiding parameters. We did discussed importance of CPAP for overall health and well-being. Continue to follow-up with cardiology as planned. Continue finasteride as discussed and prescribed. All questions were answered. Will obtain PSA in 1 year. Follow-up in 1 year with PSA and PVR; or sooner with any issues, concerns, and or questions. Orders: Orders Prostate Specific Antigen 1 Year N40.1 - Benign prostatic hyperplasia with lower urinary tract symptoms, R35.1 - Nocturia, Z90.79 - Acquired absence of other genital organ(s), Z98.890 - Other specified postprocedural states Patient Instructions: The patient had an opportunity to ask questions regarding the treatment plan. All questions were answered. Physical exam, labs, and imaging were discussed and reviewed in detail. As well as risks, benefits, and discussion of treatment choices. No major barriers to understanding were identified. The patient expressed understanding and agreement with the above treatment plan. The patient was made aware they should contact our office by phone for worsening of their current condition, the appearance of new symptoms, or with any questions or concerns. Compliance is encouraged with any medications and follow up testing that is ordered. It is a privilege to be allowed the opportunity to participate in? your urological care.? Again, if you have any questions or concerns If you have any questions or concerns please do not hesitate to contact me. The office is [phone]. This note is constructed using voice recognition software. While every effort has been made to ensure accuracy orthopedic mechanic errors may have been included. Yours sincerely, MATTHEW Bhagat Coding Level of Care Code Tele Est Pt Level 3 (46345) Diagnoses Benign prostatic hyperplasia with nocturia N40.1; R35.1 Nocturia associated with benign prostatic hyperplasia N40.1; R35.1 Elevated PSA R97.20 Hx of transurethral resection of prostate Z98.890; Z90.79
--- OUTSIDE RECORDS SUMMARY | 2025-05-06 07:23 | XMS_ITS | Patient Health Record ---
Author Organization [facility] Address [address] [place] [address] Care Team Providers Care Hearing Aid Consultant Name Role Phone Jerman (RETIRED) Oziel DONNELLY Primary Care Provide r Unavailable Niall Greenfield Unavailable [phone] Reason For Referral No Information Medications Medication SIG (Take, Route, Frequency, Duration) Notes Start Date End Date Status Aspir-81 81 MG 1 tablet Orally Once a day Active Tamsulosin HCl 0.4 MG TAKE 1 CAPSULE BY MOUTH EVERY DAY Oral for 90 Active Multivitamin Adults 50+ - as directed Or ally once a day Active Vitamin D3 250 MCG (72723 UT) 1 tablet Orally as directed Active [...] Problem Status W/U Status Risk Notes Problem [id number] Encounter for screening for malignant neoplasm of colon (Z12.11) Active confirmed Problem [id number] History of adenomatous polyp of colon (Z86.010) Active confirmed Problem 95495135 Iron deficiency (E61.1) Active confirmed Problem 206580805 Irritable bowel syndrome with diarrhea (K58.0) Active confirmed Plan Of Treatment Future Test Test Name Order Date COLONOSCOPY 06/16/2014 COLONOSCOPY 11/18/2019 Insurance Providers Payer Name Payer Address Payer Phone Subscriber Number Group Number Insured Name Patient Relationship to Insured Coverage Start Date Coverage End Date MEDICARE OF [place] [address] [place] [id number] [phone] [id number] PABLO BAUM Self - patient is the insured [id number] CLAIMS [address] [place] [address] [id number] PABLO BAUM Self - patient is the insured Medical (General) History Medical History History ICD Code Small tubular adenoma remove d in 02/2009--Neg. colonoscopy in 1994 and negative colonoscopy in 08/2014 Denies DE,DM,CVA,Lung disease,renal dise ase [facility] IBS Hyperlipidemia BPH Surgical History Surgery Date(Month/Year) Wrist surgery-left 1973 Enlarged prostate--laser surgery with Dr Jennifer Casanova, III Benign biopsy of bladder with cystoscopy Right knee
== END 2025-05-06 08:43 | disposition home or self-care (01) ==
LOC: HO.HUSH 07:21
PROVIDERS: PCP Hospitalist; Visit Provider Nurse Practitioner Family
DX: N40.1 Benign prostatic hyperplasia with lower urinary tract symptoms (principal); R35.1 Nocturia; R97.20 Elevated prostate specific antigen [PSA]; Z98.890 Other specified postprocedural states; Z90.79 Acquired absence of other genital organ(s)
CPT/HCPCS: 99213